=== PATIENT | male | born 1940 | race Caucasian/White ===

== ENCOUNTER → 2017-03-28 | Outpatient (CLI) | payer OTHER | END | disposition home or self-care (01) | LOC: Rad HDHVI 12:45 | PROVIDERS: ATTEND Internal Medicine Cardiovascular Disease | DX: I10 Essential (primary) hypertension (principal); R06.02 Shortness of breath | CPT/HCPCS: 93306 ==

== ENCOUNTER → 2017-04-10 | Outpatient (CLI) | payer MEDICARE, OTHER ==
[~2017-04-10] VITALS: Ht 185.4 cm; Wt 98.9 kg
== END | disposition home or self-care (01) ==
LOC: Rad HDHVI 07:50
PROVIDERS: ATTEND Internal Medicine Cardiovascular Disease
DX: I10 Essential (primary) hypertension (principal); I49.9 Cardiac arrhythmia, unspecified; E78.00 Pure hypercholesterolemia, unspecified; R06.02 Shortness of breath; R53.83 Other fatigue
CPT/HCPCS: 78452; 93017; 96374; A9500

== ENCOUNTER → 2018-08-26 | Outpatient (CLI) | payer MEDICARE, OTHER ==
[~2018-08-26] MED LIST: IOHEXOL 350 MG/ML 100ML IJ ONE
[2018-08-26 09:00] VITALS: BP 143/62
[2018-08-26 09:30] VITALS: BP 143/62
[2018-08-26 12:14] LABS: Urine Blood Negative /uL (Negative); Urine Specific Gravity 1.016 (1.001-1.035)
[2018-08-26 12:25] LABS: Basophils # (auto) 0 uL; Basophils % (auto) 0.7 % (0.0-2.0); Eosinophils # (auto) 0.1 uL; Eosinophils % (auto) 3.4 % (0.0-7.0); Hematocrit 42.5 % (41.0-53.0); Hemoglobin 14.4 g/dL (13.5-17.5); Lymphocytes # (auto) 1.2 uL; Mean Corpuscular Hemoglobin 32.2 pg (28.0-32.0); Mean Corpuscular Hgb Conc. 33.9 g/dL (32.0-36.0); Mean Corpuscular Volume 95.1 fL (80.0-100.0); Monocytes # (auto) 0.4 uL; Neutrophils # (auto) 2.2 uL; Neutrophils % (auto) 55.9 % (37.0-80.0); Nucleated Red Blood Cells % 0.4 %; Platelet Count (auto) 179 10^3/uL (140-450); Red Blood Cells 4.47 10^6/uL (4.5-5.90); Red Cell Distribution Width 13.1 % (11.8-14.3)
[2018-08-26 12:41] LABS: Potassium 3.9 mmol/L (3.5-5.1)
[2018-08-26 12:43] LABS: Free T4 (Free Thyroxine) 1.18 ng/dL (0.89-1.76); Prostate Specific Antigen 3.23 ng/mL (0.0-4.0)
[2018-08-26 13:01] LABS: Albumin 3.9 g/dL (3.4-5.0); BUN/Creatinine Ratio 18.8; Bilirubin, Total 0.9 mg/dL (0.2-1.0); Calcium 9.6 mg/dL (8.5-10.1); Total Protein 7.9 g/dL (6.4-8.2)
== END | disposition home or self-care (01) ==
LOC: Rad HDHVI 08:49
PROVIDERS: ATTEND Internal Medicine Cardiovascular Disease
DX: K57.90 Diverticulosis of intestine, part unspecified, without perforation or abscess without bleeding (principal); N28.1 Cyst of kidney, acquired; E78.5 Hyperlipidemia, unspecified; D64.9 Anemia, unspecified; E03.9 Hypothyroidism, unspecified; E11.9 Type 2 diabetes mellitus without complications; E55.9 Vitamin D deficiency, unspecified; D51.9 Vitamin B12 deficiency anemia, unspecified; K74.1 Hepatic sclerosis; N39.0 Urinary tract infection, site not specified; C61 Malignant neoplasm of prostate; Z79.899 Other long term (current) drug therapy
CPT/HCPCS: 36415; 71260; 80053; 80061; 81003; 82306; 82565; 82607; 83036; 84153; 84403; 84439; 84443; 85025; G0463; Q9967

== ENCOUNTER → 2019-04-08 | Outpatient (CLI) | payer MEDICARE, BC | END | disposition home or self-care (01) | LOC: Rad HDHVI 08:44 | PROVIDERS: ATTEND Internal Medicine Cardiovascular Disease | DX: I34.0 Nonrheumatic mitral (valve) insufficiency (principal); G45.9 Transient cerebral ischemic attack, unspecified; I47.1 Supraventricular tachycardia; R00.2 Palpitations; I10 Essential (primary) hypertension | CPT/HCPCS: 93306; 93880 ==

== ENCOUNTER → 2019-04-14 | Outpatient (CLI) | payer MEDICARE, BC ==
[~2019-04-14] VITALS: Ht 185.4 cm; Wt 102.1 kg
[~2019-04-14] MED LIST changes: +ADENOSINE 86 MG in GIVE UN-DILUTED 0 ML IV ONE; +ADENOSINE 90 MG/30 ML INJ IV ONE; -IOHEXOL 350 MG/ML 100ML IJ ONE
== END | disposition home or self-care (01) ==
LOC: Rad HDHVI 08:05
PROVIDERS: ATTEND Internal Medicine Cardiovascular Disease
DX: I47.1 Supraventricular tachycardia (principal); I10 Essential (primary) hypertension; R06.02 Shortness of breath; R00.2 Palpitations
CPT/HCPCS: 78452; 93005; 96374; 96375; A9500; J0153

== ENCOUNTER → 2019-06-17 | Outpatient (CLI) | payer MEDICARE, BC | END | disposition home or self-care (01) | LOC: Rad HDHVI 10:49 | PROVIDERS: ATTEND Internal Medicine | DX: J98.11 Atelectasis (principal) | CPT/HCPCS: 71046 ==

== ENCOUNTER → 2019-06-23 | Outpatient (CLI) | payer MEDICARE, BC ==
[2019-06-23 12:30] LABS: Urine Blood Negative /uL (Negative); Urine Specific Gravity 1.014 (1.001-1.035)
== END | disposition home or self-care (01) ==
LOC: LAB 09:09
PROVIDERS: ATTEND Internal Medicine
DX: N39.0 Urinary tract infection, site not specified (principal)
CPT/HCPCS: 81003

== ENCOUNTER → 2020-11-03 | Outpatient (CLI) | payer MEDICARE, BC | END | disposition home or self-care (01) | LOC: Rad HDHVI 09:05 | PROVIDERS: ATTEND Internal Medicine Cardiovascular Disease | DX: I47.1 Supraventricular tachycardia (principal); I25.2 Old myocardial infarction | CPT/HCPCS: 93306 ==

== ENCOUNTER → 2020-11-05 | Outpatient (CLI) | payer MEDICARE, BC | END | disposition home or self-care (01) | LOC: Rad HDHVI 08:58 | PROVIDERS: ATTEND Internal Medicine Cardiovascular Disease | DX: I10 Essential (primary) hypertension (principal); E78.5 Hyperlipidemia, unspecified | CPT/HCPCS: 93880 ==

== ENCOUNTER → 2020-11-17 | Outpatient (CLI) | payer MEDICARE, BC ==
[~2020-11-17] VITALS: Ht 180.3 cm; Wt 93.0 kg
[~2020-11-17] MED LIST changes: +ADENOSINE 78 MG in GIVE UN-DILUTED 0 ML IV ONE; -ADENOSINE 86 MG in GIVE UN-DILUTED 0 ML IV ONE
== END | disposition home or self-care (01) ==
LOC: Rad HDHVI 09:16
PROVIDERS: ATTEND Internal Medicine Cardiovascular Disease
DX: R00.2 Palpitations (principal); I10 Essential (primary) hypertension; R78.5 Finding of other psychotropic drug in blood; J44.9 Chronic obstructive pulmonary disease, unspecified; R06.02 Shortness of breath
CPT/HCPCS: 78452; 93005; 96374; 96375; A9500; J0153

== ENCOUNTER → 2020-11-19 | Outpatient (CLI) | payer MEDICARE, BC ==
[2020-11-19 11:42] LABS: Basophils # (auto) 0 10 ^3/uL (0-0.2); Basophils % (auto) 0.9 % (0.0-2.0); Eosinophils # (auto) 0.2 10 ^3/uL (0-0.8); Eosinophils % (auto) 4.4 % (0.0-7.0); Hematocrit 35.3 % (41.0-53.0); Lymphocytes # (auto) 1.3 10 ^3/uL (0.4-5.4); Lymphocytes % (auto) 33.7 % (10.0-50.0); Mean Corpuscular Hemoglobin 31.2 pg (28.0-32.0); Mean Corpuscular Hgb Conc. 33.9 g/dL (32.0-36.0); Mean Corpuscular Volume 91.9 fL (80.0-100.0); Monocytes # (auto) 0.4 10 ^3/uL (0-1.3); Monocytes % (auto) 10.2 % (0.0-12.0); Neutrophils % (auto) 50.8 % (37.0-80.0); Platelet Count (auto) 165 10^3/uL (140-450); Red Blood Cells 3.84 10^6/uL (4.5-5.90); Red Cell Distribution Width 13.7 % (11.8-14.3); White Blood Cell 3.9 10^3/uL (4.4-10.8)
[2020-11-19 11:52] LABS: Albumin 3.7 g/dL (3.4-5.0); Potassium 4.1 mmol/L (3.5-5.1)
[2020-11-19 11:57] LABS: Urine Blood Negative /uL (Negative); Urine Specific Gravity 1.018 (1.001-1.035)
[2020-11-19 12:00] LABS: BUN/Creatinine Ratio 30.1; Bilirubin, Total 0.8 mg/dL (0.2-1.0); Calcium 9.8 mg/dL (8.5-10.1); Total Protein 7.8 g/dL (6.4-8.2)
[2020-11-19 12:10] LABS: Prostate Specific Antigen 4.88 ng/mL (0.0-4.0)
[2020-11-19 12:14] LABS: Free T4 (Free Thyroxine) 1.1 ng/dL (0.89-1.76)
== END | disposition home or self-care (01) ==
LOC: LAB 08:24
PROVIDERS: ATTEND Internal Medicine Cardiovascular Disease
DX: C61 Malignant neoplasm of prostate (principal); I10 Essential (primary) hypertension; D51.3 Other dietary vitamin B12 deficiency anemia; E11.9 Type 2 diabetes mellitus without complications; E55.9 Vitamin D deficiency, unspecified; D64.9 Anemia, unspecified; R00.2 Palpitations; R53.1 Weakness; R30.0 Dysuria
CPT/HCPCS: 36415; 80053; 80061; 81003; 82306; 82607; 83036; 84153; 84154; 84403; 84439; 84443; 85025

== ENCOUNTER → 2021-01-28 | Outpatient (CLI) | payer MEDICARE, BC ==
[2021-01-28 10:41] LABS: Urine Bacteria NONE SEEN /hpf (None Seen); Urine Blood 3+ /uL (Negative); Urine Mucus FEW (None Seen); Urine Specific Gravity 1.017 (1.001-1.035); Urine WBC 35 /hpf (0 - 3)
== END | disposition home or self-care (01) ==
LOC: LAB 10:26
PROVIDERS: ATTEND Nurse Practitioner Family
DX: N39.0 Urinary tract infection, site not specified (principal)
CPT/HCPCS: 81001; 87086

== ENCOUNTER → 2021-12-05 | Outpatient (CLI) | payer MEDICARE, BC ==
[~2021-12-05] VITALS: Ht 180.3 cm; Wt 99.8 kg
[~2021-12-05] MED LIST changes: -ADENOSINE 78 MG in GIVE UN-DILUTED 0 ML IV ONE; +ADENOSINE 84 MG in GIVE UN-DILUTED 0 ML IV ONE
== END | disposition home or self-care (01) ==
LOC: Rad HDHVI 08:06
PROVIDERS: ATTEND Internal Medicine Cardiovascular Disease
DX: I10 Essential (primary) hypertension (principal); E78.5 Hyperlipidemia, unspecified; Z82.49 Family history of ischemic heart disease and other diseases of the circulatory system
CPT/HCPCS: 78452; 93005; 96374; 96375; A9500; J0153

== ENCOUNTER → 2022-07-10 | Outpatient (CLI) | payer MEDICARE, BC ==
[~2022-07-10] MED LIST changes: -ADENOSINE 84 MG in GIVE UN-DILUTED 0 ML IV ONE; -ADENOSINE 90 MG/30 ML INJ IV ONE; +APIX2.5T PO; +ASCO500T11 PO; +ATOR20TA50 PO; +AZIL40TA2 PO; +CHOL100079 PO; +COEN300C PO; +CRAN1CAP10 PO; +FINA5TAB4 PO; +MISC-1089 PO; +MULTTAB75 PO; +NIAC-10 PO; +OMEG100078 PO; +OMEP-434 PO; +PROBCAP38 PO; +SOTA80TA PO; +TURM500C3 PO
[2022-07-10 10:14] VITALS: BP 120/72
[2022-07-10 10:32] VITALS: BP 109/68
[2022-07-10 11:36] LABS: BUN/Creatinine Ratio 16.7; Calcium 9.6 mg/dL (8.5-10.1)
[2022-07-10 12:04] LABS: Basophils # (auto) 0 10 ^3/uL (0-0.2); Basophils % (auto) 0.6 % (0.0-2.0); Eosinophils # (auto) 0.1 10 ^3/uL (0-0.8); Eosinophils % (auto) 3.4 % (0.0-7.0); Hematocrit 38.2 % (41.0-53.0); Hemoglobin 12.3 g/dL (13.5-17.5); Lymphocytes % (auto) 23.5 % (10.0-50.0); Mean Corpuscular Hemoglobin 28.3 pg (28.0-32.0); Mean Corpuscular Hgb Conc. 32.2 g/dL (32.0-36.0); Mean Corpuscular Volume 87.7 fL (80.0-100.0); Monocytes # (auto) 0.5 10 ^3/uL (0-1.3); Monocytes % (auto) 10.6 % (0.0-12.0); Neutrophils # (auto) 2.6 10 ^3/uL (1.6-8.6); Neutrophils % (auto) 61.9 % (37.0-80.0); Nucleated Red Blood Cells % 0.1 %; Red Blood Cells 4.35 10^6/uL (4.5-5.90); White Blood Cell 4.3 10^3/uL (4.4-10.8)
[2022-07-10 12:34] LABS: Partial Thromboplastin Time 27.3 sec (24.6-33.4)
== END | disposition home or self-care (01) ==
LOC: Rad HDHVI 10:02
PROVIDERS: ATTEND Internal Medicine Cardiovascular Disease
DX: Z01.818 Encounter for other preprocedural examination (principal); R94.31 Abnormal electrocardiogram [ECG] [EKG]; I48.20 Chronic atrial fibrillation, unspecified; I95.9 Hypotension, unspecified; I70.0 Atherosclerosis of aorta; R79.1 Abnormal coagulation profile
CPT/HCPCS: 36415; 71046; 80048; 85025; 85610; 85730; 93005; G0463

== ENCOUNTER 2022-07-13 07:00 | Day surgery (SDC) | payer MEDICARE, BC ==
[~2022-07-13] VITALS: Ht 180.3 cm; Wt 97.5 kg
[2022-07-13] MEDS ORDERED: VANCOMYCIN 1GM/250ML 250 ML IV ONE ×2 (10:00→11:32)
[2022-07-13] MEDS ORDERED: VANCOMYCIN HCL 1000 MG VL ONE (11:31)
[2022-07-13] MEDS ORDERED: fentaNYL CITRATE 100 MCG/2 ML VL ONE (11:31)
[2022-07-13] MEDS ORDERED: MIDAZOLAM HCL 2MG/2ML 2ml VIAL (1mg/ml) ONE (11:32)
[2022-07-13] MEDS ORDERED: LIDOCAINE 2%HCL (LOCAL ANESTH.) INJ 20ML MDV ONE (11:32)
[2022-07-13] MEDS ORDERED: IODIXANOL 320MG/ML 100ML BTL IV ONE (12:04)
== END 2022-07-13 14:37 | disposition home or self-care (01) ==
LOC: CATH 07:00
PROVIDERS: ATTEND Internal Medicine Cardiovascular Disease
DX: I49.5 Sick sinus syndrome (principal); I48.20 Chronic atrial fibrillation, unspecified; E78.5 Hyperlipidemia, unspecified; I11.9 Hypertensive heart disease without heart failure; Z20.822 Contact with and (suspected) exposure to COVID-19; Z79.899 Other long term (current) drug therapy
CPT/HCPCS: 33208; 71045; 93005; C1785; C1892; C1898; J2250; J3010; J3370; U0003; 99152; 99153; Q9967

== ENCOUNTER → 2022-10-11 | Outpatient (CLI) | payer MEDICARE, BC | END | disposition home or self-care (01) | LOC: Rad HDHVI 09:04 | PROVIDERS: ATTEND Internal Medicine Cardiovascular Disease | DX: I08.3 Combined rheumatic disorders of mitral, aortic and tricuspid valves (principal); R00.2 Palpitations; E78.5 Hyperlipidemia, unspecified | CPT/HCPCS: 93306 ==

== ENCOUNTER → 2022-11-13 | Outpatient (CLI) | payer MEDICARE, BC ==
[~2022-11-13] MED LIST changes: +MAGN250T8 PO; +OMEG1CAP31 PO
[2022-11-13 12:48] VITALS: BP 130/90
[2022-11-13 16:49] LABS: BUN/Creatinine Ratio 21.8; Calcium 9.4 mg/dL (8.5-10.1)
[2022-11-13 16:51] LABS: Basophils # (auto) 0 10 ^3/uL (0-0.2); Basophils % (auto) 0.6 % (0.0-2.0); Eosinophils # (auto) 0.1 10 ^3/uL (0-0.8); Eosinophils % (auto) 2.6 % (0.0-7.0); Hemoglobin 13.5 g/dL (13.5-17.5); Lymphocytes # (auto) 1.1 10 ^3/uL (0.4-5.4); Lymphocytes % (auto) 18.6 % (10.0-50.0); Mean Corpuscular Hemoglobin 29.5 pg (28.0-32.0); Mean Corpuscular Volume 89.4 fL (80.0-100.0); Monocytes # (auto) 0.6 10 ^3/uL (0-1.3); Neutrophils # (auto) 3.8 10 ^3/uL (1.6-8.6); Neutrophils % (auto) 67.2 % (37.0-80.0); Red Blood Cells 4.58 10^6/uL (4.5-5.90); Red Cell Distribution Width 16.4 % (11.8-14.3); White Blood Cell 5.7 10^3/uL (4.4-10.8)
[2022-11-13 17:12] LABS: INR 1.03 (0.9-1.15); Partial Thromboplastin Time 28.1 sec (24.6-33.4)
== END | disposition home or self-care (01) ==
LOC: Rad HDHVI 12:37
PROVIDERS: ATTEND Internal Medicine Cardiovascular Disease
DX: R79.1 Abnormal coagulation profile (principal)
CPT/HCPCS: 36415; 71046; 80048; 85025; 85610; 85730; G0463

== ENCOUNTER 2022-11-16 09:10 | Day surgery (SDC) | payer MEDICARE, BC ==
[~2022-11-16] VITALS: Ht 180.3 cm; Wt 98.4 kg
[~2022-11-16 09:10] MED LIST changes: -OMEG100078 PO
[2022-11-16] MEDS ORDERED: MIDAZOLAM HCL 2MG/2ML 2ml VIAL (1mg/ml) IV ONE ×2 (09:45→11:00)
[2022-11-16] MEDS ORDERED: MIDAZOLAM HCL 2MG/2ML 2ml VIAL (1mg/ml) ONE (10:46)
[2022-11-16 10:55] VITALS: BP 142/89
[2022-11-16 10:58] VITALS: BP 134/87
[2022-11-16 11:13] VITALS: BP 127/82
[2022-11-16 11:28] VITALS: BP 126/80
[2022-11-16 11:58] VITALS: BP 135/95
[2022-11-16] MEDS ORDERED: levoFLOXacin 500MG 100 ML IV ONE (12:00)
[2022-11-16 13:28] VITALS: BP 128/75
[2022-11-16 15:28] LABS: Urine Bacteria NONE SEEN /hpf (None Seen); Urine Blood 3+ /uL (Negative); Urine Budding Yeast FEW /hpf (None Seen); Urine Mucus FEW (None Seen); Urine WBC 17 /hpf (0 - 3)
== END 2022-11-16 13:47 | disposition home or self-care (01) ==
LOC: CATH 09:10
PROVIDERS: ATTEND Internal Medicine Cardiovascular Disease
DX: I48.20 Chronic atrial fibrillation, unspecified (principal); E78.5 Hyperlipidemia, unspecified; I10 Essential (primary) hypertension; I49.5 Sick sinus syndrome; Z79.899 Other long term (current) drug therapy; Z79.01 Long term (current) use of anticoagulants; R31.0 Gross hematuria
CPT/HCPCS: 81001; 92960; 93005; J1956; J2250; J7040; 99152

== ENCOUNTER → 2023-01-29 | Outpatient (CLI) | payer MEDICARE, BC ==
[~2023-01-29] MED LIST changes: +AMIO200T33 PO
[2023-01-29 08:55] VITALS: BP 115/78
[2023-01-29 09:13] VITALS: BP 121/73
== END | disposition home or self-care (01) ==
LOC: Rad HDHVI 08:43
PROVIDERS: ATTEND Internal Medicine Cardiovascular Disease
DX: Z01.810 Encounter for preprocedural cardiovascular examination (principal); R94.31 Abnormal electrocardiogram [ECG] [EKG]; I48.0 Paroxysmal atrial fibrillation
CPT/HCPCS: 36415; 71046; 80048; 85025; 85610; 85730; 93005; G0463

== ENCOUNTER 2023-02-01 06:50 | Day surgery (SDC) | payer MEDICARE, BC ==
[2023-01-29 10:30] LABS: Basophils # (auto) 0 10 ^3/uL (0-0.2); Basophils % (auto) 0.7 % (0.0-2.0); Eosinophils # (auto) 0.3 10 ^3/uL (0-0.8); Eosinophils % (auto) 4.4 % (0.0-7.0); Hematocrit 36.6 % (41.0-53.0); Hemoglobin 12.1 g/dL (13.5-17.5); Lymphocytes # (auto) 0.7 10 ^3/uL (0.4-5.4); Lymphocytes % (auto) 12.9 % (10.0-50.0); Mean Corpuscular Hemoglobin 29.3 pg (28.0-32.0); Mean Corpuscular Volume 88.7 fL (80.0-100.0); Monocytes # (auto) 0.7 10 ^3/uL (0-1.3); Monocytes % (auto) 11.5 % (0.0-12.0); Neutrophils % (auto) 70.5 % (37.0-80.0); Nucleated Red Blood Cells % 0.1 %; Red Blood Cells 4.12 10^6/uL (4.5-5.90); Red Cell Distribution Width 17.4 % (11.8-14.3); White Blood Cell 5.7 10^3/uL (4.4-10.8)
[2023-01-29 10:43] LABS: INR 1.07 (0.9-1.15); Partial Thromboplastin Time 28.6 sec (24.6-33.4)
[2023-01-29 10:46] LABS: BUN/Creatinine Ratio 24.6 (10.0-20.0); Calcium 9.3 mg/dL (8.5-10.1); Potassium 3.9 mmol/L (3.5-5.1)
[~2023-02-01] VITALS: Ht 180.3 cm; Wt 93.9 kg
[~2023-02-01 06:50] MED LIST changes: -SOTA80TA PO
[2023-02-01] MEDS ORDERED: fentaNYL CITRATE 100 MCG/2 ML VL IV ONE (09:00)
[2023-02-01] MEDS ORDERED: MIDAZOLAM HCL 2MG/2ML 2ml VIAL (1mg/ml) IV ONE (09:00)
[2023-02-01] MEDS ORDERED: diphenhdrAMINE HCL 50 MG/1 ML VL ONE (09:39)
[2023-02-01] MEDS ORDERED: diphenhdrAMINE HCL 50 MG/1 ML VL IV ONE (10:15)
== END 2023-02-01 11:38 | disposition home or self-care (01) ==
LOC: CATH 06:50
PROVIDERS: ATTEND Internal Medicine Cardiovascular Disease
DX: I48.91 Unspecified atrial fibrillation (principal); I10 Essential (primary) hypertension; I49.5 Sick sinus syndrome; Z79.01 Long term (current) use of anticoagulants; E66.9 Obesity, unspecified
CPT/HCPCS: 36415; 80048; 85025; 85610; 85730; 92960; J1200; J2250; J7040; 99152

== ENCOUNTER → 2023-02-21 | Outpatient (CLI) | payer MEDICARE, BC ==
[~2023-02-21] MED LIST changes: -COEN300C PO; +COEN300C2 PO; +MAGNESIUM SULFATE 1GM/100ML 200 ML IV ONE; +OMEG-28 PO; -OMEG1CAP31 PO
[2023-02-21 09:40] VITALS: BP 148/84
[2023-02-21] MEDS: MAGNESIUM SULFATE 1GM/100ML 100 ML IV SCH ×5 (10:30→14:21)
[2023-02-21 14:19] VITALS: BP 133/83
== END | disposition home or self-care (01) ==
LOC: CHF HDHVI 09:32
PROVIDERS: ATTEND Internal Medicine Cardiovascular Disease
DX: E83.42 Hypomagnesemia (principal); I48.0 Paroxysmal atrial fibrillation; R06.02 Shortness of breath; R07.89 Other chest pain; R53.83 Other fatigue; I10 Essential (primary) hypertension; E66.9 Obesity, unspecified; Z79.01 Long term (current) use of anticoagulants
CPT/HCPCS: 93005; 96365; 96366; G0463; J3475

== ENCOUNTER → 2023-03-14 | Outpatient (CLI) | payer MEDICARE, BC ==
[~2023-03-14] MED LIST changes: +DOCU-80 PO; +LINA145C PO; +MAGN400T40 PO; -MAGNESIUM SULFATE 1GM/100ML 200 ML IV ONE; +METO-6 PO; +POM; +SODIUM FERRIC GLUC CPLEX 62.5MG/5ML VIAL IV ONE; +TEMA30CA PO
[2023-03-14 09:56] VITALS: BP 116/82
[2023-03-14 10:05] VITALS: BP 112/72
== END | disposition home or self-care (01) ==
LOC: Rad HDHVI 09:47
PROVIDERS: ATTEND Internal Medicine Cardiovascular Disease
DX: Z01.818 Encounter for other preprocedural examination (principal); I48.0 Paroxysmal atrial fibrillation; R00.2 Palpitations; R06.02 Shortness of breath; R07.9 Chest pain, unspecified; R94.31 Abnormal electrocardiogram [ECG] [EKG]
CPT/HCPCS: 71046; 80048; 85025; 85610; 85730; 93005; G0463

== ENCOUNTER 2023-03-15 06:52 | Day surgery (SDC) | payer MEDICARE, BC ==
[2023-03-14 12:00] LABS: Basophils # (auto) 0 10 ^3/uL (0-0.2); Basophils % (auto) 0.5 % (0.0-2.0); Eosinophils # (auto) 0 10 ^3/uL (0-0.8); Eosinophils % (auto) 0.7 % (0.0-7.0); Hematocrit 30.9 % (41.0-53.0); Hemoglobin 10.1 g/dL (13.5-17.5); Lymphocytes # (auto) 0.6 10 ^3/uL (0.4-5.4); Lymphocytes % (auto) 10.7 % (10.0-50.0); Mean Corpuscular Hemoglobin 27.7 pg (28.0-32.0); Mean Corpuscular Hgb Conc. 32.6 g/dL (32.0-36.0); Mean Corpuscular Volume 85.1 fL (80.0-100.0); Monocytes # (auto) 0.6 10 ^3/uL (0-1.3); Monocytes % (auto) 10.9 % (0.0-12.0); Neutrophils # (auto) 4.2 10 ^3/uL (1.6-8.6); Neutrophils % (auto) 77.2 % (37.0-80.0); Red Blood Cells 3.63 10^6/uL (4.5-5.90); Red Cell Distribution Width 15.8 % (11.8-14.3); White Blood Cell 5.5 10^3/uL (4.4-10.8)
[2023-03-14 12:12] LABS: BUN/Creatinine Ratio 14.4 (10.0-20.0); Calcium 8.9 mg/dL (8.5-10.1); Potassium 3.2 mmol/L (3.5-5.1)
[2023-03-14 12:16] LABS: INR 1.12 (0.9-1.15)
[~2023-03-15] VITALS: Ht 185.4 cm; Wt 94.8 kg
[2023-03-15] VITALS (9 sets, daily range): BP systolic 124–140; BP diastolic 82–92
[~2023-03-15 06:52] MED LIST changes: -CRAN1CAP10 PO; -DOCU-80 PO; -MAGN400T40 PO; -SODIUM FERRIC GLUC CPLEX 62.5MG/5ML VIAL IV ONE
[2023-03-15] MEDS ORDERED: IOHEXOL 350 MG/ML 500ML BOTTLE IJ ONE (10:18)
[2023-03-15] MEDS ORDERED: LIDOCAINE 2%HCL (LOCAL ANESTH.) INJ 20ML MDV ONE (10:18)
[2023-03-15] MEDS ORDERED: fentaNYL CITRATE 100 MCG/2 ML VL ONE (10:47)
[2023-03-15] MEDS ORDERED: MIDAZOLAM HCL 2MG/2ML 2ml VIAL (1mg/ml) ONE (10:48)
== END 2023-03-15 13:10 | disposition home or self-care (01) ==
LOC: CATH 06:52
PROVIDERS: ATTEND Internal Medicine Cardiovascular Disease
DX: I48.19 Other persistent atrial fibrillation (principal); D64.9 Anemia, unspecified; I10 Essential (primary) hypertension; E78.5 Hyperlipidemia, unspecified; I49.5 Sick sinus syndrome; Z95.0 Presence of cardiac pacemaker; Z79.899 Other long term (current) drug therapy
CPT/HCPCS: 36415; 80048; 85025; 85610; 85730; 93458; C1894; J1644; J2250; J3010; Q9967; 99152

== ENCOUNTER 2023-03-30 08:14 | Inpatient (IN) | payer MEDICARE, BC ==
[~2023-03-30] VITALS: Ht 180.3 cm; Wt 92.9 kg
[2023-03-30] MEDS ORDERED: FUROSEMIDE 40 MG/4 ML VIAL IV ONE (08:45)
[2023-03-30 09:04] LABS: Eosinophils # (auto) 0 10 ^3/uL (0-0.8); Hematocrit 25.8 % (41.0-53.0); Hemoglobin 8.3 g/dL (13.5-17.5); Lymphocytes # (auto) 0.5 10 ^3/uL (0.4-5.4); Neutrophils # (auto) 5.4 10 ^3/uL (1.6-8.6); Red Cell Distribution Width 16.7 % (11.8-14.3); White Blood Cell 6.7 10^3/uL (4.4-10.8)
[2023-03-30 09:05] LABS: Basophils # (auto) 0.1 10 ^3/uL (0-0.2); Basophils % (auto) 0.8 % (0.0-2.0); Eosinophils % (auto) 0.6 % (0.0-7.0); Lymphocytes % (auto) 7.8 % (10.0-50.0); Mean Corpuscular Hemoglobin 26.1 pg (28.0-32.0); Mean Corpuscular Hgb Conc. 32.2 g/dL (32.0-36.0); Mean Corpuscular Volume 81.2 fL (80.0-100.0); Monocytes # (auto) 0.6 10 ^3/uL (0-1.3); Monocytes % (auto) 9.6 % (0.0-12.0); Neutrophils % (auto) 81.2 % (37.0-80.0); Nucleated Red Blood Cells % 0.2 %; Red Blood Cells 3.18 10^6/uL (4.5-5.90)
[2023-03-30 09:35] LABS: Albumin 3.3 g/dL (3.4-5.0); Calcium 8.6 mg/dL (8.5-10.1); Magnesium 2.3 mg/dL (1.6-2.6); Potassium 3.6 mmol/L (3.5-5.1)
[2023-03-30 09:38] LABS: BUN/Creatinine Ratio 17.1 (10.0-20.0); Bilirubin, Total 0.8 mg/dL (0.2-1.0); Total Protein 6.6 g/dL (6.4-8.2)
[2023-03-30 10:55] LABS: Urine Bacteria FEW /hpf (None Seen); Urine Blood Negative /uL (Negative); Urine WBC 1 /hpf (0 - 3)
[2023-03-30] MEDS ORDERED: NITROGLYCERIN 0.4 MG SL TAB SL PRN (14:30)
[2023-03-30] MEDS ORDERED: MORPHINE SULFATE INJ 2 MG/ml SYRG IV PRN (14:30)
[2023-03-30] MEDS ORDERED: FUROSEMIDE INJECTION 100 MG in SODIUM CHL 0.9% 100 ML IV ONE (14:30)
[2023-03-30] MEDS ORDERED: DOBUTamine 1000MCG/ML 250 ML IV ONE (14:30)
[2023-03-30] MEDS ORDERED: TEMAZEPAM 15 MG CAP PO PRN (14:45)
[2023-03-30] MEDS: AMIODARONE HCL 200 MG TAB PO SCH (22:25)
[2023-03-30] MEDS: APIXABAN 2.5 MG TAB PO SCH (22:26)
[2023-03-31] MEDS ORDERED: DOBUTamine 1000MCG/ML 250 ML IV ONE (01:21)
[2023-03-31] MEDS ORDERED: FUROSEMIDE INJECTION 100 MG in SODIUM CHL 0.9% 100 ML IV SCH (01:30)
[2023-03-31] MEDS ORDERED: DOBUTamine 1000MCG/ML 250 ML IV SCH (01:30)
[2023-03-31 05:26] LABS: Basophils # (auto) 0 10 ^3/uL (0-0.2); Eosinophils # (auto) 0 10 ^3/uL (0-0.8); Hemoglobin 8.4 g/dL (13.5-17.5); Monocytes # (auto) 0.8 10 ^3/uL (0-1.3)
[2023-03-31 05:28] LABS: Basophils % (auto) 0.4 % (0.0-2.0); Eosinophils % (auto) 0.1 % (0.0-7.0); Hematocrit 26.1 % (41.0-53.0); Lymphocytes # (auto) 0.7 10 ^3/uL (0.4-5.4); Lymphocytes % (auto) 10.5 % (10.0-50.0); Mean Corpuscular Hemoglobin 25.8 pg (28.0-32.0); Mean Corpuscular Hgb Conc. 32.2 g/dL (32.0-36.0); Mean Corpuscular Volume 80.1 fL (80.0-100.0); Monocytes % (auto) 11.4 % (0.0-12.0); Neutrophils # (auto) 5.3 10 ^3/uL (1.6-8.6); Neutrophils % (auto) 77.6 % (37.0-80.0); Nucleated Red Blood Cells % 0.1 %; Red Blood Cells 3.26 10^6/uL (4.5-5.90); Red Cell Distribution Width 16.8 % (11.8-14.3); White Blood Cell 6.8 10^3/uL (4.4-10.8)
[2023-03-31 05:31] LABS: BUN/Creatinine Ratio 12.5 (10.0-20.0); Calcium 8.9 mg/dL (8.5-10.1)
[2023-03-31 05:46] LABS: Potassium 2.7 mmol/L (3.5-5.1)
[2023-03-31] MEDS ORDERED: POTASSIUM EFFERVESENT TAB 25 MEQ GT ONE (06:15)
[2023-03-31] MEDS ORDERED: POTASSIUM EFFERVESENT TAB 25 MEQ PO ONE ×2 (08:45→12:00)
[2023-03-31] MEDS ORDERED: METOCLOPRAMIDE HCL 5MG/ml INJ 2ml VIAL IV PRN (09:00)
[2023-03-31] MEDS: MAGNESIUM OXIDE 500 MG PO SCH (10:54)
[2023-03-31] MEDS: APIXABAN 2.5 MG TAB PO SCH ×2 (11:17→21:14)
[2023-03-31] MEDS: AMIODARONE HCL 200 MG TAB PO SCH ×2 (11:17→21:14)
[2023-03-31] MEDS: POTASSIUM EFFERVESENT TAB 25 MEQ PO SCH (11:18)
[2023-03-31] MEDS: FINASTERIDE 5 MG TAB PO SCH (11:19)
[2023-03-31] MEDS: METOPROLOL SUCCINATE XL 50 MG TAB PO SCH (11:19)
[2023-03-31] MEDS: PANTOPRAZOLE 40 MG TAB PO SCH (11:19)
[2023-03-31 12:39] VITALS: BP 115/71
[2023-03-31 16:01] LABS: Basophils # (auto) 0.1 10 ^3/uL (0-0.2); Eosinophils # (auto) 0 10 ^3/uL (0-0.8); Mean Corpuscular Hemoglobin 25.4 pg (28.0-32.0); Nucleated Red Blood Cells % 0.1 %; White Blood Cell 8.8 10^3/uL (4.4-10.8)
[2023-03-31 16:02] LABS: Basophils % (auto) 0.7 % (0.0-2.0); Eosinophils % (auto) 0.2 % (0.0-7.0); Hematocrit 27.6 % (41.0-53.0); Hemoglobin 8.7 g/dL (13.5-17.5); Lymphocytes # (auto) 0.7 10 ^3/uL (0.4-5.4); Lymphocytes % (auto) 7.4 % (10.0-50.0); Mean Corpuscular Hgb Conc. 31.7 g/dL (32.0-36.0); Mean Corpuscular Volume 80.3 fL (80.0-100.0); Monocytes # (auto) 1.2 10 ^3/uL (0-1.3); Monocytes % (auto) 13.1 % (0.0-12.0); Neutrophils # (auto) 6.9 10 ^3/uL (1.6-8.6); Neutrophils % (auto) 78.6 % (37.0-80.0); Red Blood Cells 3.44 10^6/uL (4.5-5.90); Red Cell Distribution Width 17.3 % (11.8-14.3)
[2023-03-31 16:20] LABS: Albumin 3.3 g/dL (3.4-5.0); Calcium 9.3 mg/dL (8.5-10.1); Potassium 4.1 mmol/L (3.5-5.1)
[2023-03-31 16:23] LABS: BUN/Creatinine Ratio 12.2 (10.0-20.0); Total Protein 7.2 g/dL (6.4-8.2)
[2023-03-31 17:02] VITALS: BP 115/70
[2023-03-31 22:00] VITALS: BP 97/63
[2023-04-01 04:58] VITALS: BP 123/82
[2023-04-01 07:30] VITALS: BP 137/74
[2023-04-01 08:37] VITALS: BP 137/74
[2023-04-01] MEDS: PANTOPRAZOLE 40 MG TAB PO SCH (10:33)
[2023-04-01] MEDS: FINASTERIDE 5 MG TAB PO SCH (10:33)
[2023-04-01] MEDS: APIXABAN 2.5 MG TAB PO SCH ×2 (10:33→21:09)
[2023-04-01] MEDS: AMIODARONE HCL 200 MG TAB PO SCH ×2 (10:33→21:08)
[2023-04-01] MEDS: METOPROLOL SUCCINATE XL 50 MG TAB PO SCH (10:34)
[2023-04-01] MEDS: POTASSIUM EFFERVESENT TAB 25 MEQ PO SCH (10:34)
[2023-04-01] MEDS: MAGNESIUM OXIDE 500 MG PO SCH (10:35)
[2023-04-01] MEDS ORDERED: FUROSEMIDE 40 MG/4 ML VIAL IV ONE (16:30)
[2023-04-01 17:00] VITALS: BP 94/60
[2023-04-01 17:22] LABS: Albumin 3.2 g/dL (3.4-5.0); Calcium 8.7 mg/dL (8.5-10.1); Potassium 4.1 mmol/L (3.5-5.1)
[2023-04-01 17:26] LABS: BUN/Creatinine Ratio 11.3 (10.0-20.0); Total Protein 6.8 g/dL (6.4-8.2)
[2023-04-01] MEDS ORDERED: POTASSIUM EFFERVESENT TAB 25 MEQ PO ONE (17:45)
[2023-04-01 17:54] LABS: Basophils # (auto) 0 10 ^3/uL (0-0.2); Basophils % (auto) 0.6 % (0.0-2.0); Eosinophils # (auto) 0 10 ^3/uL (0-0.8); Eosinophils % (auto) 0.3 % (0.0-7.0); Hematocrit 28.9 % (41.0-53.0); Lymphocytes # (auto) 0.9 10 ^3/uL (0.4-5.4); Lymphocytes % (auto) 11.5 % (10.0-50.0); Mean Corpuscular Hgb Conc. 31.3 g/dL (32.0-36.0); Mean Corpuscular Volume 79.9 fL (80.0-100.0); Monocytes # (auto) 0.9 10 ^3/uL (0-1.3); Monocytes % (auto) 11.7 % (0.0-12.0); Neutrophils # (auto) 5.8 10 ^3/uL (1.6-8.6); Neutrophils % (auto) 75.9 % (37.0-80.0); Nucleated Red Blood Cells % 0.1 %; Red Blood Cells 3.62 10^6/uL (4.5-5.90); Red Cell Distribution Width 17.4 % (11.8-14.3); White Blood Cell 7.6 10^3/uL (4.4-10.8)
[2023-04-01 22:00] VITALS: BP 97/67
[2023-04-02 05:00] VITALS: BP 109/71
[2023-04-02 09:07] VITALS: BP 110/69
[2023-04-02] MEDS: POTASSIUM EFFERVESENT TAB 25 MEQ PO SCH (11:08)
[2023-04-02] MEDS: AMIODARONE HCL 200 MG TAB PO SCH (11:09)
[2023-04-02] MEDS: FINASTERIDE 5 MG TAB PO SCH (11:09)
[2023-04-02] MEDS: PANTOPRAZOLE 40 MG TAB PO SCH (11:09)
[2023-04-02] MEDS: APIXABAN 2.5 MG TAB PO SCH (11:09)
[2023-04-02] MEDS: METOPROLOL SUCCINATE XL 50 MG TAB PO SCH (11:10)
[2023-04-02] MEDS: MAGNESIUM OXIDE 500 MG PO SCH (11:10)
[2023-04-02 13:00] VITALS: BP 113/75
[2023-04-02 16:58] VITALS: BP 102/51
[2023-04-02 17:00] VITALS: BP 102/51
== END 2023-04-02 18:00 | disposition home or self-care (01) | DRG 291 ==
LOC: ER 08:14 → TELE 14:18 → TELE-WESTW 03-31 12:34
PROVIDERS: ADMIT Internal Medicine Cardiovascular Disease; ATTEND Internal Medicine Cardiovascular Disease
PROC: 05HF33Z Insertion of Infusion Device into Left Cephalic Vein, Percutaneous Approach (ICD-10-PCS; principal; 2023-03-30)
PROC: B54NZZA Ultrasonography of Left Upper Extremity Veins, Guidance (ICD-10-PCS; 2023-03-30)
DX: I11.0 Hypertensive heart disease with heart failure (principal); I50.31 Acute diastolic (congestive) heart failure; D68.59 Other primary thrombophilia; I48.91 Unspecified atrial fibrillation; D64.9 Anemia, unspecified; E78.5 Hyperlipidemia, unspecified; Z95.0 Presence of cardiac pacemaker; E87.6 Hypokalemia; R60.1 Generalized edema
CPT/HCPCS: 36415; 71046; 80048; 80053; 81001; 83735; 83880; 84484; 85025; 93005; 96365; 96366; 96368; 96375; 99291; G0378

== ENCOUNTER → 2023-07-02 | Outpatient (CLI) | payer MEDICARE, BC ==
[~2023-07-02] MED LIST changes: +FURO40TA4 PO; +MISC-1089 OR; +ONDA-155 PO; +POM PO; +TURM500C3 OR
[2023-07-02 11:53] VITALS: BP 115/67; PULSE 75; RESP 18; O2SAT 99
[2023-07-02 12:10] VITALS: BP 99/61; PULSE 78; RESP 18; O2SAT 99
== END | disposition home or self-care (01) ==
LOC: CHF HDHVI 11:44
PROVIDERS: ATTEND Internal Medicine Cardiovascular Disease
DX: Z01.810 Encounter for preprocedural cardiovascular examination (principal); R94.31 Abnormal electrocardiogram [ECG] [EKG]; I48.0 Paroxysmal atrial fibrillation
CPT/HCPCS: 93005; G0463

== ENCOUNTER → 2023-07-19 | Outpatient (CLI) | payer MEDICARE, BC ==
[~2023-07-19] MED LIST changes: +IOHEXOL 350 MG/ML 100ML IJ ONE; -MISC-1089 OR; -TURM500C3 PO
[2023-07-19 15:07] VITALS: BP 123/75; PULSE 94; RESP 16; O2SAT 97
[2023-07-19 15:24] VITALS: BP 110/75; PULSE 91; RESP 16; O2SAT 96
== END | disposition home or self-care (01) ==
LOC: Rad HDHVI 14:12
PROVIDERS: ATTEND Internal Medicine Cardiovascular Disease
DX: N28.1 Cyst of kidney, acquired (principal); J90 Pleural effusion, not elsewhere classified; R10.9 Unspecified abdominal pain; I48.0 Paroxysmal atrial fibrillation; I11.0 Hypertensive heart disease with heart failure; I50.31 Acute diastolic (congestive) heart failure; E78.5 Hyperlipidemia, unspecified; D50.9 Iron deficiency anemia, unspecified; Z79.891 Long term (current) use of opiate analgesic; Z79.899 Other long term (current) drug therapy
CPT/HCPCS: 74160; G0463; Q9967

== ENCOUNTER 2023-08-16 20:52 | Inpatient (IN) | payer MEDICARE, BC ==
[~2023-08-16] VITALS: Ht 180.3 cm; Wt 90.9 kg
[~2023-08-16 20:52] MED LIST changes: -IOHEXOL 350 MG/ML 100ML IJ ONE
[2023-08-16 21:36] LABS: Alanine Aminotransferase 113 U/L (7-40); Albumin 3.9 g/dL (3.2-4.8); Alkaline Phosphatase 143 U/L (46-116); Anion Gap 9 (5-15); Aspartate Aminotransferase 127 U/L (13-40); BUN/Creatinine Ratio 13.1 (10.0-20.0); Blood Urea Nitrogen 20 mg/dL (9-23); Carbon Dioxide 25 mmol/L (20-30); Chloride 102 mmol/L (98-107); Glucose 122 mg/dL (74-106); Magnesium 1.8 mg/dL (1.6-2.6); Sodium 136 mmol/L (136-145)
[2023-08-16 21:37] LABS: Bilirubin, Total 0.8 mg/dL (0.2-1.0); Total Protein 6.9 g/dL (5.7-8.2)
[2023-08-16 21:54] LABS: Basophils # (auto) 0 10 ^3/uL (0-0.2); Eosinophils # (auto) 0.1 10 ^3/uL (0-0.8); Hemoglobin 10.7 g/dL (13.5-17.5); White Blood Cell 5.8 10^3/uL (4.4-10.8)
[2023-08-16 21:55] LABS: Basophils % (auto) 0.5 % (0.0-2.0); Eosinophils % (auto) 1.3 % (0.0-7.0); Hematocrit 34.1 % (41.0-53.0); Lymphocytes # (auto) 1.4 10 ^3/uL (0.4-5.4); Lymphocytes % (auto) 23.4 % (10.0-50.0); Mean Corpuscular Hemoglobin 25.7 pg (28.0-32.0); Mean Corpuscular Hgb Conc. 31.4 g/dL (32.0-36.0); Monocytes # (auto) 0.8 10 ^3/uL (0-1.3); Monocytes % (auto) 13.7 % (0.0-12.0); Neutrophils # (auto) 3.5 10 ^3/uL (1.6-8.6); Neutrophils % (auto) 61.1 % (37.0-80.0); Red Blood Cells 4.16 10^6/uL (4.5-5.90)
[2023-08-16 22:02] LABS: Urine Bacteria NONE SEEN /hpf (None Seen); Urine Blood Negative /uL (Negative); Urine Clarity Clear (Clear); Urine Color Yellow (Yellow); Urine Hyaline Cast FEW /lpf (0 - 2); Urine Mucus FEW (None Seen); Urine Protein, UAD 1+ (Negative); Urine Specific Gravity 1.014 (1.001-1.035); Urine Urobilinogen Normal (Negative); Urine WBC 2 /hpf (0 - 3)
[2023-08-16 22:14] LABS: INR 1.14 (0.9-1.15); Partial Thromboplastin Time 28.8 SEC (24.5-34.5); Prothrombin Time 11.9 sec (9.3-11.8)
[2023-08-16] MEDS ORDERED: FUROSEMIDE 20 MG/2 ML VIAL IV ONE (22:30)
[2023-08-17] MEDS ORDERED: IOHEXOL 350 MG/ML 100ML IJ ONE (00:56)
[2023-08-17] MEDS ORDERED: HYDROcodone-ACET 5/325MG TAB PO PRN (01:15)
[2023-08-17] MEDS ORDERED: MORPHINE SULFATE INJ 2 MG/ml SYRG IV PRN (01:15)
[2023-08-17] MEDS ORDERED: ACETAMINOPHEN 325 MG TAB PO PRN (01:15)
[2023-08-17] MEDS ORDERED: DOCUSATE SOD 100 MG CAP PO PRN (01:15)
[2023-08-17] MEDS ORDERED: NITROGLYCERIN 0.4 MG SL TAB SL PRN (01:15)
[2023-08-17] MEDS ORDERED: ONDANSETRON HCL 4 MG/2 ML VIAL IV PRN (01:15)
[2023-08-17] MEDS ORDERED: IBUPROFEN 600 MG TAB PO PRN (03:15)
[2023-08-17 08:00] VITALS: BP 121/81; PULSE 79; PULSE 84; RESP 16; TEMP 98; O2SAT 96
[2023-08-17] MEDS ORDERED: POTA10TA51 PO (08:13)
[2023-08-17] MEDS ORDERED: TEMA30CA PO (08:13)
[2023-08-17] MEDS: APIXABAN 2.5 MG TAB PO SCH ×2 (09:21→22:08)
[2023-08-17] MEDS: SODIUM CHLOR 0.9% PF (SALINE LOCK) 10ML VIAL/SYR IV SCH ×3 (09:25→22:10)
[2023-08-17] MEDS ORDERED: ASCORBIC ACID 500 MG TAB PO SCH (10:00)
[2023-08-17] MEDS ORDERED: FAMOTIDINE (10MG/ML) 2ML VL IV SCH (10:00)
[2023-08-17] MEDS ORDERED: CARVEDILOL 3.125 MG TAB PO SCH (10:00)
[2023-08-17] MEDS ORDERED: FUROSEMIDE 20 MG/2 ML VIAL IV SCH (10:00)
[2023-08-17] MEDS ORDERED: POTASSIUM CHL 10 Meq TABLET PO ONE (11:30)
[2023-08-17] MEDS ORDERED: FUROSEMIDE 20 MG/2 ML VIAL IV ONE (11:30)
[2023-08-17 11:43] LABS: Basophils # (auto) 0 10 ^3/uL (0-0.2); Eosinophils # (auto) 0 10 ^3/uL (0-0.8); Hemoglobin 9.7 g/dL (13.5-17.5); Lymphocytes # (auto) 0.6 10 ^3/uL (0.4-5.4); Monocytes # (auto) 0.7 10 ^3/uL (0-1.3); Neutrophils # (auto) 3.5 10 ^3/uL (1.6-8.6); Nucleated Red Blood Cells % 0.1 %; White Blood Cell 4.9 10^3/uL (4.4-10.8)
[2023-08-17 11:46] LABS: Basophils % (auto) 0.7 % (0.0-2.0); Eosinophils % (auto) 0.2 % (0.0-7.0); Hematocrit 30.5 % (41.0-53.0); Lymphocytes % (auto) 12.6 % (10.0-50.0); Mean Corpuscular Hemoglobin 25.7 pg (28.0-32.0); Mean Corpuscular Hgb Conc. 31.7 g/dL (32.0-36.0); Mean Corpuscular Volume 81.2 fL (80.0-100.0); Monocytes % (auto) 15.3 % (0.0-12.0); Neutrophils % (auto) 71.2 % (37.0-80.0); Red Blood Cells 3.75 10^6/uL (4.5-5.90); Red Cell Distribution Width 19.9 % (11.8-14.3)
[2023-08-17] MEDS: AMIODARONE HCL 200 MG TAB PO SCH (11:59)
[2023-08-17 12:00] VITALS: BP 110/75; PULSE 77; RESP 18; TEMP 98.1; O2SAT 96
[2023-08-17 12:05] LABS: Alanine Aminotransferase 98 U/L (7-40); Albumin 3.6 g/dL (3.2-4.8); Alkaline Phosphatase 106 U/L (46-116); Anion Gap 6 (5-15); Aspartate Aminotransferase 99 U/L (13-40); BUN/Creatinine Ratio 13.1 (10.0-20.0); Blood Urea Nitrogen 19 mg/dL (9-23); Calcium 8.8 mg/dL (8.7-10.4); Carbon Dioxide 29 mmol/L (20-30); Chloride 102 mmol/L (98-107); Glucose 95 mg/dL (74-106); Potassium 3.6 mmol/L (3.5-5.1); Sodium 137 mmol/L (136-145)
[2023-08-17 12:06] LABS: Bilirubin, Total 0.8 mg/dL (0.2-1.0); Total Protein 6.3 g/dL (5.7-8.2)
[2023-08-17 12:08] LABS: Free T3 2.46 pg/mL (2.3-4.2)
[2023-08-17 12:09] LABS: Free T4 (Free Thyroxine) 1.51 ng/dL (0.89-1.76)
[2023-08-17 16:00] VITALS: BP 122/71; PULSE 78; RESP 18; TEMP 97.7; O2SAT 94
[2023-08-17] MEDS: FUROSEMIDE 20 MG/2 ML VIAL IV SCH (17:18)
[2023-08-17 20:00] VITALS: BP 122/78; PULSE 82; PULSE 86; RESP 17; O2SAT 96
[2023-08-17] MEDS ORDERED: ATORVASTATIN 20 MG TAB PO SCH (22:00)
[2023-08-17] MEDS: ATORVASTATIN 20 MG TAB PO SCH (22:08)
[2023-08-17 22:14] VITALS: BP 116/75; PULSE 89; RESP 17; TEMP 97.7; O2SAT 96
[2023-08-18] VITALS (7 sets, daily range): BP systolic 102–120; BP diastolic 67–80; PULSE 77–90; RESP 16–17; TEMP 97.8–98.3; O2SAT 92–99
[2023-08-18] MEDS: SODIUM CHLOR 0.9% PF (SALINE LOCK) 10ML VIAL/SYR IV SCH ×3 (06:01→21:51)
[2023-08-18] MEDS: FUROSEMIDE 20 MG/2 ML VIAL IV SCH ×2 (06:01→18:00)
[2023-08-18 06:23] LABS: Alanine Aminotransferase 84 U/L (7-40); Alkaline Phosphatase 99 U/L (46-116); Anion Gap 6 (5-15); BUN/Creatinine Ratio 13.2 (10.0-20.0); Blood Urea Nitrogen 21 mg/dL (9-23); Calcium 8.9 mg/dL (8.7-10.4); Carbon Dioxide 31 mmol/L (20-30); Chloride 102 mmol/L (98-107); Glucose 95 mg/dL (74-106); Potassium 3.3 mmol/L (3.5-5.1); Sodium 139 mmol/L (136-145)
[2023-08-18 06:24] LABS: Albumin 3.4 g/dL (3.2-4.8); Aspartate Aminotransferase 83 U/L (13-40); Bilirubin, Total 0.9 mg/dL (0.2-1.0)
[2023-08-18 06:31] LABS: Basophils # (auto) 0 10 ^3/uL (0-0.2); Eosinophils # (auto) 0.1 10 ^3/uL (0-0.8); Lymphocytes # (auto) 0.8 10 ^3/uL (0.4-5.4); Neutrophils # (auto) 3.8 10 ^3/uL (1.6-8.6)
[2023-08-18 06:34] LABS: Basophils % (auto) 0.7 % (0.0-2.0); Eosinophils % (auto) 1.4 % (0.0-7.0); Hematocrit 30.4 % (41.0-53.0); Hemoglobin 9.5 g/dL (13.5-17.5); Mean Corpuscular Hemoglobin 25.1 pg (28.0-32.0); Mean Corpuscular Hgb Conc. 31.3 g/dL (32.0-36.0); Mean Corpuscular Volume 80.4 fL (80.0-100.0); Monocytes # (auto) 0.8 10 ^3/uL (0-1.3); Monocytes % (auto) 15.3 % (0.0-12.0); Neutrophils % (auto) 68.6 % (37.0-80.0); Nucleated Red Blood Cells % 0.1 %; Red Blood Cells 3.78 10^6/uL (4.5-5.90); Red Cell Distribution Width 20.3 % (11.8-14.3); White Blood Cell 5.5 10^3/uL (4.4-10.8)
[2023-08-18] MEDS: APIXABAN 2.5 MG TAB PO SCH ×2 (08:41→21:50)
[2023-08-18] MEDS: POTASSIUM CHL 10 Meq TABLET PO SCH (08:41)
[2023-08-18] MEDS: AMIODARONE HCL 200 MG TAB PO SCH (08:42)
[2023-08-18] MEDS: FINASTERIDE 5 MG TAB PO SCH (08:42)
[2023-08-18] MEDS: METOPROLOL SUCCINATE XL 50 MG TAB PO SCH (08:43)
[2023-08-18] MEDS ORDERED: metOLazone 5 MG TAB PO ONE (15:00)
[2023-08-18] MEDS: ATORVASTATIN 20 MG TAB PO SCH (21:50)
[2023-08-19 05:00] VITALS: BP 125/84; PULSE 89; RESP 17; TEMP 98.3; O2SAT 96
[2023-08-19] MEDS: SODIUM CHLOR 0.9% PF (SALINE LOCK) 10ML VIAL/SYR IV SCH ×2 (05:26→14:45)
[2023-08-19] MEDS: FUROSEMIDE 20 MG/2 ML VIAL IV SCH ×2 (05:26→18:00)
[2023-08-19 08:00] VITALS: PULSE 83; PULSE 84; RESP 17; O2SAT 95
[2023-08-19] MEDS: FINASTERIDE 5 MG TAB PO SCH (09:08)
[2023-08-19] MEDS: POTASSIUM CHL 10 Meq TABLET PO SCH (09:09)
[2023-08-19] MEDS: APIXABAN 2.5 MG TAB PO SCH (09:09)
[2023-08-19] MEDS: AMIODARONE HCL 200 MG TAB PO SCH (09:10)
[2023-08-19] MEDS: METOPROLOL SUCCINATE XL 50 MG TAB PO SCH (09:15)
[2023-08-19 13:00] VITALS: BP 93/62; PULSE 87; RESP 19; TEMP 98.1; O2SAT 94
[2023-08-19] MEDS ORDERED: LEVO500T91 PO (14:21)
[2023-08-19] MEDS ORDERED: levoFLOXacin 500MG 100 ML IV ONE (14:30)
[2023-08-19 16:56] VITALS: BP 104/69; PULSE 80; RESP 18; TEMP 97.8; O2SAT 94
[2023-08-19 16:58] VITALS: BP 104/69; PULSE 80; RESP 18; TEMP 97.8; O2SAT 94
[2023-08-20 12:28] LABS: Hepatitis A Total Antibody Negative (Negative); Hepatitis B Core Total AB Negative (Negative); Hepatitis B Surface Antibody Negative (Negative)
[2023-08-20 12:29] LABS: Hepatitis B Surface Antigen Negative (Negative); Hepatitis C Antibody Negative (Negative)
== END 2023-08-19 17:42 | disposition home or self-care (01) | DRG 291 ==
LOC: ER 20:52 → TELE 08-17 01:27 → TELE-EAST 08-17 06:11
PROVIDERS: ADMIT Nurse Practitioner Family; ATTEND Internal Medicine
DX: I13.0 Hypertensive heart and chronic kidney disease with heart failure and stage 1 through stage 4 chronic kidney disease, or unspecified chronic kidney disease (principal); I50.43 Acute on chronic combined systolic (congestive) and diastolic (congestive) heart failure; D68.69 Other thrombophilia; L03.116 Cellulitis of left lower limb; E78.5 Hyperlipidemia, unspecified; I48.91 Unspecified atrial fibrillation; R94.6 Abnormal results of thyroid function studies; N18.30 Chronic kidney disease, stage 3 unspecified; R74.01 Elevation of levels of liver transaminase levels; N40.0 Benign prostatic hyperplasia without lower urinary tract symptoms
CPT/HCPCS: 36415; 71045; 73700; 76705; 80053; 81001; 83735; 83880; 84439; 84443; 84481; 84484; 85025; 85379; 85610; 85730; 86704; 86706; 86708; 86803; 87340; 93005; 93970; 97163; G0378; J1956; J3490

== ENCOUNTER → 2023-08-27 | Outpatient (CLI) | payer MEDICARE, BC ==
[~2023-08-27] MED LIST changes: +LEVO500T91 PO; +POTA10TA51 PO
== END | disposition home or self-care (01) ==
LOC: Rad HDHVI 10:58
PROVIDERS: ATTEND Internal Medicine Cardiovascular Disease
DX: I08.3 Combined rheumatic disorders of mitral, aortic and tricuspid valves (principal); I27.21 Secondary pulmonary arterial hypertension; R06.02 Shortness of breath; R00.2 Palpitations
CPT/HCPCS: 93306

== ENCOUNTER 2023-12-17 11:23 | Inpatient (IN) | payer MEDICARE, BC ==
[~2023-12-17] VITALS: Ht 180.3 cm; Wt 84.8 kg
[2023-12-17 12:14] LABS: Urine Bacteria NONE SEEN /hpf (None Seen); Urine Blood 3+ /uL (Negative); Urine Clarity HAZY (Clear); Urine Color Red (Yellow); Urine Mucus FEW (None Seen); Urine Protein, UAD 1+ (Negative); Urine Specific Gravity 1.022 (1.001-1.035); Urine Urobilinogen Normal (Negative); Urine WBC 389 /hpf (0 - 3); Urine WBC Clumps PRESENT /hpf (None Seen); Urine pH 5.5 (5.0-8.0)
[2023-12-17 13:23] LABS: Basophils # (auto) 0.1 10 ^3/uL (0-0.2); Basophils % (auto) 1.4 % (0.0-2.0); Eosinophils # (auto) 0 10 ^3/uL (0-0.8); Eosinophils % (auto) 0.1 % (0.0-7.0); Hematocrit 36.8 % (41.0-53.0); Hemoglobin 11.8 g/dL (13.5-17.5); Lymphocytes # (auto) 0.7 10 ^3/uL (0.4-5.4); Lymphocytes % (auto) 12.2 % (10.0-50.0); Mean Corpuscular Hemoglobin 27.3 pg (28.0-32.0); Mean Corpuscular Hgb Conc. 32.1 g/dL (32.0-36.0); Monocytes # (auto) 0.6 10 ^3/uL (0-1.3); Neutrophils # (auto) 4.4 10 ^3/uL (1.6-8.6); Neutrophils % (auto) 75.3 % (37.0-80.0); Nucleated Red Blood Cells % 0.1 %; Red Blood Cells 4.34 10^6/uL (4.5-5.90); Red Cell Distribution Width 18.1 % (11.8-14.3); White Blood Cell 5.9 10^3/uL (4.4-10.8)
[2023-12-17 13:39] LABS: Chloride 100 mmol/L (98-107); INR 1.06 (0.9-1.15); Potassium 4.5 mmol/L (3.5-5.1); Prothrombin Time 11.1 sec (9.3-11.8); Sodium 137 mmol/L (136-145)
[2023-12-17 13:40] LABS: Anion Gap 3 (5-15); Calcium 10.4 mg/dL (8.5-10.1); Carbon Dioxide 34 mmol/L (20-30)
[2023-12-17 13:45] LABS: BUN/Creatinine Ratio 23.3 (10.0-20.0); Blood Urea Nitrogen 40 mg/dL (9-23); Glucose 123 mg/dL (74-106)
[2023-12-17] MEDS: cefTRIAXone SOD 1,000 MG VL IM ONE (16:30)
[2023-12-17] MEDS ORDERED: BUME2TAB5 PO (19:14)
[2023-12-17] MEDS ORDERED: DOCUSATE SOD 100 MG CAP PO PRN (19:15)
[2023-12-17] MEDS ORDERED: ONDANSETRON HCL 4 MG/2 ML VIAL IV PRN (19:15)
[2023-12-17] MEDS ORDERED: MORPHINE SULFATE INJ 2 MG/ml SYRG IV PRN ×2 (19:15)
[2023-12-17] MEDS ORDERED: ACETAMINOPHEN 325 MG TAB PO PRN (19:15)
[2023-12-17] MEDS ORDERED: NITROGLYCERIN 0.4 MG SL TAB SL PRN (19:15)
[2023-12-17] MEDS: Niacin 500mg TAB ER PO SCH (22:00)
[2023-12-17 22:30] VITALS: RESP 16; O2SAT 98
[2023-12-17] MEDS: SODIUM CHLORIDE 0.9% 1,000 ML IV ONE (22:54)
[2023-12-18 06:28] LABS: Basophils # (auto) 0 10 ^3/uL (0-0.2); Basophils % (auto) 0.5 % (0.0-2.0); Eosinophils # (auto) 0 10 ^3/uL (0-0.8); Eosinophils % (auto) 0.6 % (0.0-7.0); Hematocrit 35.7 % (41.0-53.0); Hemoglobin 11.6 g/dL (13.5-17.5); Lymphocytes # (auto) 0.9 10 ^3/uL (0.4-5.4); Lymphocytes % (auto) 16.6 % (10.0-50.0); Mean Corpuscular Hemoglobin 27.7 pg (28.0-32.0); Mean Corpuscular Hgb Conc. 32.6 g/dL (32.0-36.0); Mean Corpuscular Volume 84.9 fL (80.0-100.0); Monocytes # (auto) 0.8 10 ^3/uL (0-1.3); Monocytes % (auto) 13.8 % (0.0-12.0); Neutrophils # (auto) 3.8 10 ^3/uL (1.6-8.6); Neutrophils % (auto) 68.5 % (37.0-80.0); Red Cell Distribution Width 17.7 % (11.8-14.3); White Blood Cell 5.6 10^3/uL (4.4-10.8)
[2023-12-18 06:46] LABS: Alanine Aminotransferase 230 U/L (7-40); Albumin 4.3 g/dL (3.2-4.8); Alkaline Phosphatase 118 U/L (46-116); Anion Gap 5 (5-15); Aspartate Aminotransferase 189 U/L (13-40); Blood Urea Nitrogen 33 mg/dL (9-23); Calcium 10.4 mg/dL (8.7-10.4); Carbon Dioxide 32 mmol/L (20-30); Chloride 102 mmol/L (98-107); Glucose 109 mg/dL (74-106); Potassium 4.3 mmol/L (3.5-5.1); Sodium 139 mmol/L (136-145)
[2023-12-18 06:47] LABS: Bilirubin, Total 0.8 mg/dL (0.2-1.0); Total Protein 7.8 g/dL (5.7-8.2)
[2023-12-18] MEDS ORDERED: POTA-180 PO (09:51)
[2023-12-18] MEDS ORDERED: LINA1CAP2 PO (09:51)
[2023-12-18] MEDS ORDERED: AMIO400T3 PO (09:56)
[2023-12-18] MEDS: OMEPRAZOLE-SOD BICARB 20 MG POWDER PO SCH (10:00)
[2023-12-18] MEDS: LINACLOTIDE 145 MCG PO SCH (10:00)
[2023-12-18] MEDS: cefTRIAXone 1GM/50ML D5W 50 ML IV SCH (11:11)
[2023-12-18] MEDS: ATORVASTATIN 20 MG TAB PO SCH (11:15)
[2023-12-18] MEDS: AMIODARONE HCL 200 MG TAB PO SCH (11:17)
[2023-12-18] MEDS: FINASTERIDE 5 MG TAB PO SCH (11:17)
[2023-12-18] MEDS: METOPROLOL SUCCINATE XL 50 MG TAB PO SCH (11:18)
[2023-12-18] MEDS: HYDROcodone-ACET 5/325MG TAB PO PRN (11:18)
[2023-12-18] MEDS: BUMETANIDE 1 MG TAB PO SCH (11:19)
[2023-12-18 15:34] VITALS: PULSE 20; RESP 20; O2SAT 96
[2023-12-18] MEDS ORDERED: MIDAZOLAM HCL 2MG/2ML 2ml VIAL (1mg/ml) ONE (18:57)
[2023-12-18] MEDS ORDERED: fentaNYL CITRATE 100 MCG/2 ML VL ONE (18:57)
[2023-12-18] MEDS ORDERED: ONDANSETRON HCL 4 MG/2 ML VIAL ONE (19:48)
[2023-12-18] MEDS ORDERED: PROPOFOL 10 MG/ML 20 ML IV ONE (19:49)
[2023-12-18] MEDS ORDERED: LIDOCAINE 2% (LOCAL ANESTH.) PF 5ml SDV ONE (19:51)
[2023-12-18] MEDS ORDERED: ROCURONIUM 10MG/ML 10ML VIAL IV ONE (19:51)
[2023-12-18] MEDS ORDERED: NEOSTIGMINE 1 MG/ML INJ (10mg/10ML VIAL) ONE (19:58)
[2023-12-18] MEDS ORDERED: GLYCOPYRROLATE 0.2 MG/ML 1ML VIAL ONE (19:58)
[2023-12-18 20:00] VITALS: PULSE 85; RESP 19; O2SAT 98
[2023-12-18 20:06] VITALS: PULSE 96; RESP 16; O2SAT 100
[2023-12-18] MEDS ORDERED: HYDROmorphone HCL 2 MG/ML VL/or syr IV PRN (20:15)
[2023-12-18 20:20] VITALS: PULSE 93; RESP 19; O2SAT 100
[2023-12-18] MEDS: MEPERIDINE HCL (25 MG/ML) 1ML VIAL IM ONE (20:21)
[2023-12-18] MEDS: ONDANSETRON HCL 4 MG/2 ML VIAL IV ONE (20:45)
[2023-12-18 21:00] VITALS: BP 122/92; PULSE 79; RESP 17; TEMP 98.5; O2SAT 97
[2023-12-18] MEDS: MEPERIDINE HCL (25 MG/ML) 1ML VIAL ONE (21:58)
[2023-12-19] VITALS (8 sets, daily range): BP systolic 90–115; BP diastolic 56–68; PULSE 66–113; RESP 16–19; TEMP 97.5–98.6; O2SAT 94–100
[2023-12-19 05:47] LABS: Basophils # (auto) 0 10 ^3/uL (0-0.2); Basophils % (auto) 0.2 % (0.0-2.0); Eosinophils # (auto) 0 10 ^3/uL (0-0.8); Eosinophils % (auto) 0.6 % (0.0-7.0); Hematocrit 32.6 % (41.0-53.0); Hemoglobin 10.4 g/dL (13.5-17.5); Lymphocytes # (auto) 0.6 10 ^3/uL (0.4-5.4); Lymphocytes % (auto) 9.2 % (10.0-50.0); Mean Corpuscular Hemoglobin 27.2 pg (28.0-32.0); Mean Corpuscular Hgb Conc. 31.9 g/dL (32.0-36.0); Monocytes # (auto) 0.8 10 ^3/uL (0-1.3); Monocytes % (auto) 12.2 % (0.0-12.0); Neutrophils # (auto) 5.4 10 ^3/uL (1.6-8.6); Neutrophils % (auto) 77.8 % (37.0-80.0); Red Blood Cells 3.84 10^6/uL (4.5-5.90); Red Cell Distribution Width 17.8 % (11.8-14.3)
[2023-12-19 06:12] LABS: Alanine Aminotransferase 176 U/L (7-40); Alkaline Phosphatase 98 U/L (46-116); Anion Gap 3 (5-15); Blood Urea Nitrogen 26 mg/dL (9-23); Calcium 9.5 mg/dL (8.5-10.1); Carbon Dioxide 35 mmol/L (20-30); Chloride 103 mmol/L (98-107); Glucose 92 mg/dL (74-106); Potassium 4.2 mmol/L (3.5-5.1); Sodium 141 mmol/L (136-145)
[2023-12-19 06:14] LABS: Albumin 3.6 g/dL (3.2-4.8); Aspartate Aminotransferase 145 U/L (13-40); Bilirubin, Total 0.9 mg/dL (0.2-1.0); Total Protein 6.5 g/dL (5.7-8.2)
[2023-12-19] MEDS: PANTOPRAZOLE 40 MG TAB PO SCH (09:11)
[2023-12-19] MEDS: SODIUM CHLORIDE 0.9% 1,000 ML IV ONE (17:02)
[2023-12-20 05:00] VITALS: BP 110/60; PULSE 111; RESP 18; TEMP 97.8; O2SAT 97
[2023-12-20 06:52] LABS: Basophils # (auto) 0 10 ^3/uL (0-0.2); Basophils % (auto) 0.4 % (0.0-2.0); Eosinophils # (auto) 0 10 ^3/uL (0-0.8); Eosinophils % (auto) 0.5 % (0.0-7.0); Hematocrit 30.7 % (41.0-53.0); Hemoglobin 9.9 g/dL (13.5-17.5); Lymphocytes # (auto) 0.8 10 ^3/uL (0.4-5.4); Lymphocytes % (auto) 12.2 % (10.0-50.0); Mean Corpuscular Hemoglobin 27.3 pg (28.0-32.0); Mean Corpuscular Hgb Conc. 32.3 g/dL (32.0-36.0); Mean Corpuscular Volume 84.5 fL (80.0-100.0); Monocytes # (auto) 0.9 10 ^3/uL (0-1.3); Monocytes % (auto) 13.7 % (0.0-12.0); Neutrophils # (auto) 4.6 10 ^3/uL (1.6-8.6); Neutrophils % (auto) 73.2 % (37.0-80.0); Nucleated Red Blood Cells % 0.1 %; Red Blood Cells 3.63 10^6/uL (4.5-5.90); Red Cell Distribution Width 17.6 % (11.8-14.3); White Blood Cell 6.3 10^3/uL (4.4-10.8)
[2023-12-20 07:32] LABS: Anion Gap 4 (5-15); Carbon Dioxide 32 mmol/L (20-30); Chloride 103 mmol/L (98-107); Potassium 3.4 mmol/L (3.5-5.1); Sodium 139 mmol/L (136-145)
[2023-12-20 07:33] LABS: Calcium 8.9 mg/dL (8.5-10.1)
[2023-12-20 07:38] LABS: Blood Urea Nitrogen 19 mg/dL (9-23); Glucose 94 mg/dL (74-106)
[2023-12-20 09:00] VITALS: BP 109/64; PULSE 74; RESP 18; TEMP 97.8; O2SAT 77
[2023-12-20 12:51] VITALS: BP 130/73; PULSE 77; RESP 18; TEMP 97.8; O2SAT 96
[2023-12-20] MEDS ORDERED: CIPR-173 PO (13:19)
[2023-12-20] MEDS: POTASSIUM EFFERVESENT TAB 25 MEQ PO ONE (15:16)
== END 2023-12-20 17:00 | disposition home or self-care (01) | DRG 668 ==
LOC: ER 11:23 → TELE 19:14 → TELE-WESTW 12-18 17:08 → WEST WING 12-19 18:36
PROVIDERS: ADMIT Internal Medicine; ATTEND Internal Medicine
PROC: 0TBC8ZX Excision of Bladder Neck, Via Natural or Artificial Opening Endoscopic, Diagnostic (ICD-10-PCS; 2023-12-18)
PROC: 0TBB8ZZ Excision of Bladder, Via Natural or Artificial Opening Endoscopic (ICD-10-PCS; principal; 2023-12-18 19:06)
DX: D49.4 Neoplasm of unspecified behavior of bladder (principal); N17.0 Acute kidney failure with tubular necrosis; N39.0 Urinary tract infection, site not specified; I13.0 Hypertensive heart and chronic kidney disease with heart failure and stage 1 through stage 4 chronic kidney disease, or unspecified chronic kidney disease; N12 Tubulo-interstitial nephritis, not specified as acute or chronic; I50.42 Chronic combined systolic (congestive) and diastolic (congestive) heart failure; N28.1 Cyst of kidney, acquired; E78.5 Hyperlipidemia, unspecified; I48.91 Unspecified atrial fibrillation; N18.30 Chronic kidney disease, stage 3 unspecified; K21.9 Gastro-esophageal reflux disease without esophagitis; D64.9 Anemia, unspecified; E86.9 Volume depletion, unspecified; N40.0 Benign prostatic hyperplasia without lower urinary tract symptoms; R74.01 Elevation of levels of liver transaminase levels; Z79.01 Long term (current) use of anticoagulants
CPT/HCPCS: 36415; 71045; 74176; 76775; 80048; 80053; 81001; 85025; 85610; 87040; 87086; G0378; J0696; J2001; J2250; J2405; J2704

== ENCOUNTER 2024-05-09 08:01 | Inpatient (IN) | payer MEDICARE, BC ==
[~2024-05-09] VITALS: Ht 180.3 cm; Wt 98.7 kg
[~2024-05-09 08:01] MED LIST changes: -AMIO200T33 PO; +AMIO400T3 PO; +BUME2TAB5 PO; +CIPR-173 PO; -LEVO500T91 PO; -LINA145C PO; +LINA1CAP2 PO; -POM; -POM PO; +POTA-180 PO; -POTA10TA51 PO
[2024-05-09 08:48] VITALS: PULSE 95; RESP 18; O2SAT 97
[2024-05-09 09:13] LABS: Basophils # (auto) 0 10 ^3/uL (0-0.2); Eosinophils # (auto) 0 10 ^3/uL (0-0.8); Lymphocytes # (auto) 0.6 10 ^3/uL (0.4-5.4); Lymphocytes % (auto) 3.5 % (10.0-50.0); Monocytes # (auto) 1.5 10 ^3/uL (0-1.3)
[2024-05-09 09:17] LABS: Basophils % (auto) 0.1 % (0.0-2.0); Hematocrit 29.8 % (41.0-53.0); Hemoglobin 9.3 g/dL (13.5-17.5); Mean Corpuscular Hemoglobin 22.8 pg (28.0-32.0); Mean Corpuscular Hgb Conc. 31.3 g/dL (32.0-36.0); Mean Corpuscular Volume 72.9 fL (80.0-100.0); Monocytes % (auto) 9.5 % (0.0-12.0); Neutrophils # (auto) 13.9 10 ^3/uL (1.6-8.6); Neutrophils % (auto) 86.9 % (37.0-80.0); Red Blood Cells 4.09 10^6/uL (4.5-5.90); Red Cell Distribution Width 19.3 % (11.8-14.3); White Blood Cell 15.9 10^3/uL (4.4-10.8)
[2024-05-09 09:29] LABS: INR 1.13 (0.9-1.15); Prothrombin Time 11.9 sec (9.3-11.8)
[2024-05-09 09:44] LABS: Alanine Aminotransferase 196 U/L (7-40); Alkaline Phosphatase 149 U/L (46-116); Anion Gap 9 (5-15); Aspartate Aminotransferase 233 U/L (13-40); BUN/Creatinine Ratio 21.3 (10.0-20.0); Blood Urea Nitrogen 30 mg/dL (9-23); Calcium 9.8 mg/dL (8.7-10.4); Carbon Dioxide 23 mmol/L (20-30); Chloride 101 mmol/L (98-107); Glucose 119 mg/dL (74-106); Potassium 4.9 mmol/L (3.5-5.1); Sodium 133 mmol/L (136-145)
[2024-05-09 09:45] LABS: Albumin 3.9 g/dL (3.2-4.8); Bilirubin, Total 1.6 mg/dL (0.2-1.0); Total Protein 7.1 g/dL (5.7-8.2)
[2024-05-09 10:04] LABS: Urine Bacteria FEW /hpf (None Seen); Urine Blood Negative /uL (Negative); Urine Clarity Clear (Clear); Urine Color Yellow (Yellow); Urine Mucus FEW (None Seen); Urine Protein, UAD 1+ (Negative); Urine Specific Gravity 1.026 (1.001-1.035); Urine Urobilinogen 3 mg/dL (Negative); Urine WBC 2 /hpf (0 - 3); Urine pH 5.5 (5.0-9.0)
[2024-05-09] MEDS ORDERED: NITROGLYCERIN 0.4 MG SL TAB SL PRN (11:00)
[2024-05-09] MEDS ORDERED: MORPHINE SULFATE INJ 2 MG/ml SYRG IV PRN (11:00)
[2024-05-09] MEDS: FUROSEMIDE 40 MG/4 ML VIAL IV ONE (11:07)
[2024-05-09] MEDS ORDERED: metroNIDAZOLE 500MG/100ML 100 ML IV ONE (11:30)
[2024-05-09] MEDS ORDERED: cefTRIAXone 1GM/50ML D5W 50 ML IV ONE (11:30)
[2024-05-09] MEDS: cefTRIAXone 1GM/50ML D5W 50 ML IV ONE (11:53)
[2024-05-09] MEDS: metroNIDAZOLE 500MG/100ML 100 ML IV SCH (12:00)
[2024-05-09] MEDS: TEMAZEPAM 15 MG CAP PO SCH (18:00)
[2024-05-09 21:27] VITALS: PULSE 89; RESP 18; O2SAT 99
[2024-05-09] MEDS: AMIODARONE HCL 200 MG TAB PO SCH (21:46)
[2024-05-09] MEDS: APIXABAN 2.5 MG TAB PO SCH (21:46)
[2024-05-09] MEDS ORDERED: METOPROLOL SUCCINATE XL 50 MG TAB PO SCH (22:00)
[2024-05-10] VITALS (9 sets, daily range): BP systolic 99–128; BP diastolic 48–77; PULSE 62–91; RESP 18–20; TEMP 97.9–99.1; O2SAT 90–100
[2024-05-10] MEDS: MULTIPLE VITAMINS W/ MINERALS TAB PO SCH (09:06)
[2024-05-10] MEDS: PANTOPRAZOLE 40 MG TAB PO ONE (09:06)
[2024-05-10] MEDS: cefTRIAXone 1GM/50ML D5W 50 ML IV SCH (09:06)
[2024-05-10] MEDS: ASCORBIC ACID 500 MG TAB PO SCH (09:06)
[2024-05-10] MEDS: FINASTERIDE 5 MG TAB PO SCH (09:07)
[2024-05-10] MEDS: ATORVASTATIN 20 MG TAB PO SCH (09:07)
[2024-05-10] MEDS: Niacin 500mg TAB ER PO SCH (09:07)
[2024-05-10] MEDS: COENZYME Q10 300 MG PO SCH (09:15)
[2024-05-10] MEDS: [UNRECOGNIZED DRUG - OTHER] PO SCH (09:15)
[2024-05-10] MEDS: FATTY ACIDS PO SCH (09:16)
[2024-05-10] MEDS: MAGNESIUM OXIDE 500 MG PO SCH (09:16)
[2024-05-10] MEDS: NATURAL PRODUCTS PO SCH (09:16)
[2024-05-10] MEDS: OMEGA PO SCH (09:16)
[2024-05-10] MEDS: LINACLOTIDE BASE PO SCH (09:16)
[2024-05-11] VITALS (7 sets, daily range): BP systolic 105–129; BP diastolic 62–76; PULSE 71–93; RESP 16–20; TEMP 97.5–98.1; O2SAT 96–100
[2024-05-11] MEDS: PANTOPRAZOLE 40 MG TAB PO SCH (05:18)
[2024-05-11 11:03] LABS: Basophils # (auto) 0.1 10 ^3/uL (0-0.2); Basophils % (auto) 0.8 % (0.0-2.0); Eosinophils # (auto) 0 10 ^3/uL (0-0.8); Eosinophils % (auto) 0.2 % (0.0-7.0); Hematocrit 31.5 % (41.0-53.0); Hemoglobin 9.5 g/dL (13.5-17.5); Lymphocytes # (auto) 0.8 10 ^3/uL (0.4-5.4); Lymphocytes % (auto) 8.5 % (10.0-50.0); Mean Corpuscular Hgb Conc. 30.2 g/dL (32.0-36.0); Mean Corpuscular Volume 72.9 fL (80.0-100.0); Monocytes # (auto) 1.1 10 ^3/uL (0-1.3); Monocytes % (auto) 11.8 % (0.0-12.0); Neutrophils # (auto) 7.1 10 ^3/uL (1.6-8.6); Neutrophils % (auto) 78.7 % (37.0-80.0); Nucleated Red Blood Cells % 0.1 %; Red Blood Cells 4.32 10^6/uL (4.5-5.90); Red Cell Distribution Width 19.8 % (11.8-14.3)
[2024-05-11 11:19] LABS: Alanine Aminotransferase 168 U/L (7-40); Albumin 3.8 g/dL (3.2-4.8); Alkaline Phosphatase 151 U/L (46-116); Anion Gap 6 (5-15); Aspartate Aminotransferase 156 U/L (13-40); BUN/Creatinine Ratio 20.6 (10.0-20.0); Blood Urea Nitrogen 26 mg/dL (9-23); Calcium 9.3 mg/dL (8.7-10.4); Carbon Dioxide 27 mmol/L (20-30); Chloride 100 mmol/L (98-107); Glucose 104 mg/dL (74-106); Potassium 3.8 mmol/L (3.5-5.1); Sodium 133 mmol/L (136-145)
[2024-05-11 11:20] LABS: Bilirubin, Total 0.9 mg/dL (0.2-1.0); Total Protein 6.9 g/dL (5.7-8.2)
[2024-05-11] MEDS: AZITHROMYCIN 500MG/ 250ML 250 ML IV ONE (12:21)
[2024-05-11] MEDS ORDERED: ONDANSETRON HCL 4 MG/2 ML VIAL IV PRN (21:45)
[2024-05-11] MEDS: PRAZOSIN HCL 1 MG CAP PO SCH (21:52)
[2024-05-12] VITALS (8 sets, daily range): BP systolic 99–114; BP diastolic 50–80; PULSE 61–95; RESP 16–19; TEMP 97.6–98.3; O2SAT 92–99
[2024-05-12 08:50] LABS: Hepatitis B Core Total AB Negative (Negative)
[2024-05-12] MEDS ORDERED: AZITHROMYCIN 500MG/ 250ML 250 ML IV SCH (10:00)
[2024-05-12 11:35] LABS: Hepatitis A Total Antibody Positive (Negative)
[2024-05-12 11:37] LABS: Hepatitis B Surface Antibody Negative (Negative); Hepatitis B Surface Antigen Negative (Negative); Hepatitis C Antibody Negative (Negative)
[2024-05-12] MEDS: FUROSEMIDE 20 MG/2 ML VIAL IV ONE (12:00)
[2024-05-12] MEDS: ONDANSETRON HCL 4 MG/2 ML VIAL IV PRN (12:26)
[2024-05-12 12:27] LABS: Alanine Aminotransferase 128 U/L (7-40); Albumin 3.1 g/dL (3.2-4.8); Alkaline Phosphatase 117 U/L (46-116); Anion Gap 4 (5-15); Aspartate Aminotransferase 104 U/L (13-40); BUN/Creatinine Ratio 16.7 (10.0-20.0); Bilirubin, Total 0.8 mg/dL (0.2-1.0); Blood Urea Nitrogen 21 mg/dL (9-23); Calcium 8.9 mg/dL (8.7-10.4); Carbon Dioxide 27 mmol/L (20-30); Chloride 104 mmol/L (98-107); Glucose 103 mg/dL (74-106); Potassium 3.9 mmol/L (3.5-5.1); Sodium 135 mmol/L (136-145); Total Protein 5.5 g/dL (5.7-8.2)
[2024-05-12 12:30] LABS: Basophils # (auto) 0 10 ^3/uL (0-0.2); Eosinophils # (auto) 0 10 ^3/uL (0-0.8); Hemoglobin 8.1 g/dL (13.5-17.5); Lymphocytes # (auto) 0.5 10 ^3/uL (0.4-5.4); Lymphocytes % (auto) 9.5 % (10.0-50.0); Monocytes # (auto) 0.7 10 ^3/uL (0-1.3); Neutrophils # (auto) 3.9 10 ^3/uL (1.6-8.6)
[2024-05-12 12:34] LABS: Basophils % (auto) 0.4 % (0.0-2.0); Eosinophils % (auto) 0.5 % (0.0-7.0); Hematocrit 26.7 % (41.0-53.0); Mean Corpuscular Hgb Conc. 30.4 g/dL (32.0-36.0); Mean Corpuscular Volume 72.4 fL (80.0-100.0); Monocytes % (auto) 13.1 % (0.0-12.0); Neutrophils % (auto) 76.5 % (37.0-80.0); Nucleated Red Blood Cells % 0.1 %; Red Blood Cells 3.69 10^6/uL (4.5-5.90); Red Cell Distribution Width 19.6 % (11.8-14.3); White Blood Cell 5.1 10^3/uL (4.4-10.8)
[2024-05-12] MEDS: DOCUSATE SOD 100 MG CAP PO PRN (16:27)
[2024-05-12] MEDS: Ensure HIGH Protein Chocolate 8oz Bottle PO SCH (17:39)
[2024-05-13 05:00] VITALS: BP 115/66; PULSE 72; RESP 18; TEMP 97.9; O2SAT 97
[2024-05-13 09:00] VITALS: BP 108/55; PULSE 86; RESP 20; TEMP 98.2; O2SAT 93
[2024-05-13] MEDS: FUROSEMIDE 20 MG/2 ML VIAL IV SCH (09:15)
[2024-05-13] MEDS ORDERED: traMADol HCL 50 MG TAB PO PRN (09:15)
[2024-05-13] MEDS: AMIODARONE HCL 200 MG TAB PO SCH (09:20)
[2024-05-13 10:49] LABS: Basophils # (auto) 0 10 ^3/uL (0-0.2); Eosinophils # (auto) 0 10 ^3/uL (0-0.8); Eosinophils % (auto) 0.1 % (0.0-7.0); White Blood Cell 5.3 10^3/uL (4.4-10.8)
[2024-05-13 10:53] LABS: Basophils % (auto) 0.4 % (0.0-2.0); Hemoglobin 8.7 g/dL (13.5-17.5); Lymphocytes # (auto) 0.3 10 ^3/uL (0.4-5.4); Lymphocytes % (auto) 6.6 % (10.0-50.0); Mean Corpuscular Hemoglobin 22.3 pg (28.0-32.0); Mean Corpuscular Volume 72.1 fL (80.0-100.0); Monocytes # (auto) 0.6 10 ^3/uL (0-1.3); Neutrophils # (auto) 4.3 10 ^3/uL (1.6-8.6); Neutrophils % (auto) 80.9 % (37.0-80.0); Nucleated Red Blood Cells % 0.1 %; Red Blood Cells 3.89 10^6/uL (4.5-5.90); Red Cell Distribution Width 20.2 % (11.8-14.3)
[2024-05-13 11:02] LABS: Alanine Aminotransferase 117 U/L (7-40); Albumin 3.3 g/dL (3.2-4.8); Alkaline Phosphatase 152 U/L (46-116); Anion Gap 4 (5-15); Aspartate Aminotransferase 115 U/L (13-40); BUN/Creatinine Ratio 13.7 (10.0-20.0); Blood Urea Nitrogen 17 mg/dL (9-23); Carbon Dioxide 28 mmol/L (20-30); Chloride 103 mmol/L (98-107); Glucose 113 mg/dL (74-106); Potassium 3.7 mmol/L (3.5-5.1); Sodium 135 mmol/L (136-145)
[2024-05-13 11:03] LABS: Bilirubin, Total 0.8 mg/dL (0.2-1.0); Total Protein 6.1 g/dL (5.7-8.2)
[2024-05-13] MEDS: SODIUM FERR GLUC 62.5MG/5ML 110 ML IV SCH (12:09)
[2024-05-13 13:00] VITALS: BP 105/63; PULSE 66; RESP 17; TEMP 97.9; O2SAT 93
[2024-05-13 14:51] VITALS: BP 108/55; TEMP 36.6
== END 2024-05-13 16:20 | disposition home health service (06) | DRG 291 ==
LOC: ER 08:01 → TELE 11:28 → TELE-EAST 23:19 → EAST 05-12 18:16
PROVIDERS: ADMIT Internal Medicine; ATTEND Internal Medicine
DX: I13.0 Hypertensive heart and chronic kidney disease with heart failure and stage 1 through stage 4 chronic kidney disease, or unspecified chronic kidney disease (principal); I50.23 Acute on chronic systolic (congestive) heart failure; E87.1 Hypo-osmolality and hyponatremia; J98.11 Atelectasis; B15.9 Hepatitis A without hepatic coma; R65.10 Systemic inflammatory response syndrome (SIRS) of non-infectious origin without acute organ dysfunction; I48.91 Unspecified atrial fibrillation; K21.9 Gastro-esophageal reflux disease without esophagitis; R74.01 Elevation of levels of liver transaminase levels; K44.9 Diaphragmatic hernia without obstruction or gangrene; N40.0 Benign prostatic hyperplasia without lower urinary tract symptoms; D50.9 Iron deficiency anemia, unspecified; K80.20 Calculus of gallbladder without cholecystitis without obstruction; E78.5 Hyperlipidemia, unspecified; G47.00 Insomnia, unspecified; N28.1 Cyst of kidney, acquired; K58.9 Irritable bowel syndrome, unspecified; N18.31 Chronic kidney disease, stage 3a; W06.XXXA Fall from bed, initial encounter; E86.9 Volume depletion, unspecified; C67.9 Malignant neoplasm of bladder, unspecified; K29.70 Gastritis, unspecified, without bleeding; Z82.49 Family history of ischemic heart disease and other diseases of the circulatory system; I49.5 Sick sinus syndrome
CPT/HCPCS: 36415; 70450; 71045; 71250; 72148; 76705; 78226; 80053; 81001; 82550; 82607; 83036; 83540; 83550; 83690; 83880; 84443; 84484; 85025; 85610; 86704; 86706; 86708; 86803; 87040; 87340; 93005; 93306; 93970; 96365; 96375; 97110; 97116; 97163; 97530; G0378; J2405; J3490

== ENCOUNTER → 2024-05-21 | Outpatient (CLI) | payer MEDICARE, BC ==
[~2024-05-21] VITALS: Ht 30.5 cm; Wt 0.5 kg
[~2024-05-21] MED LIST changes: +PATIENTS OWN MEDICATION (FERRLECIT 125 MG) IV ONE
[2024-05-21 11:53] VITALS: BP 123/69; PULSE 74; RESP 16; O2SAT 97
[2024-05-21] MEDS: SODIUM FERRIC GLUC CPLEX 62.5MG/5ML VIAL IV ONE (12:11)
[2024-05-21] MEDS: TESTOSTERONE CYPIONATE 200 MG/ML 1ML VIAL IM ONE ×2 (12:11→13:18)
[2024-05-21] MEDS: CYANOCOBALAMIN (B-12) 1000 MCG/1 ML VIAL ONE (12:11)
[2024-05-21] MEDS: CYANOCOBALAMIN (B-12) 1000 MCG/1 ML VIAL IM ONE (13:19)
[2024-05-21 13:25] VITALS: BP 104/62; PULSE 65; RESP 16; O2SAT 97
[2024-05-21] MEDS: SODIUM FERR GLUC 62.5MG/5ML 125 MG in SODIUM CHL 0.9% 100 ML IV ONE (14:20)
== END | disposition home or self-care (01) ==
LOC: CHF HDHVI 11:51
PROVIDERS: ATTEND Internal Medicine Cardiovascular Disease
DX: D50.9 Iron deficiency anemia, unspecified (principal); E29.1 Testicular hypofunction; I13.0 Hypertensive heart and chronic kidney disease with heart failure and stage 1 through stage 4 chronic kidney disease, or unspecified chronic kidney disease; N18.31 Chronic kidney disease, stage 3a; I50.23 Acute on chronic systolic (congestive) heart failure; K21.9 Gastro-esophageal reflux disease without esophagitis; I48.91 Unspecified atrial fibrillation; Z85.51 Personal history of malignant neoplasm of bladder
CPT/HCPCS: 96365; 96372; G0463; J1071; J2916; J3420

== ENCOUNTER → 2024-05-23 | Outpatient (CLI) | payer MEDICARE, BC ==
[2024-05-23 11:05] VITALS: BP 126/71; PULSE 77; RESP 16; O2SAT 98
[2024-05-23] MEDS: SODIUM FERRIC GLUC CPLEX 62.5MG/5ML VIAL IV ONE (11:27)
[2024-05-23] MEDS: SODIUM FERR GLUC 62.5MG/5ML 110 ML IV ONE (11:32)
[2024-05-23 12:36] VITALS: BP 99/53; PULSE 73; RESP 16; O2SAT 98
== END | disposition home or self-care (01) ==
LOC: CHF HDHVI 11:03
PROVIDERS: ATTEND Internal Medicine Cardiovascular Disease
DX: D50.9 Iron deficiency anemia, unspecified (principal); I13.0 Hypertensive heart and chronic kidney disease with heart failure and stage 1 through stage 4 chronic kidney disease, or unspecified chronic kidney disease; N18.31 Chronic kidney disease, stage 3a; I50.23 Acute on chronic systolic (congestive) heart failure; K21.9 Gastro-esophageal reflux disease without esophagitis; I48.91 Unspecified atrial fibrillation; E78.5 Hyperlipidemia, unspecified; Z85.51 Personal history of malignant neoplasm of bladder
CPT/HCPCS: 96365; G0463; J2916

== ENCOUNTER → 2024-05-26 | Outpatient (CLI) | payer MEDICARE, BC ==
[~2024-05-26] VITALS: Ht 30.5 cm; Wt 0.5 kg
[2024-05-26 10:35] VITALS: BP 120/68; PULSE 75; RESP 20; O2SAT 99
[2024-05-26] MEDS: SODIUM FERRIC GLUC CPLEX 62.5MG/5ML VIAL IV ONE (10:42)
[2024-05-26 11:48] VITALS: BP 105/57; PULSE 75; RESP 18; O2SAT 99
== END | disposition home or self-care (01) ==
LOC: CHF HDHVI 10:22
PROVIDERS: ATTEND Internal Medicine Cardiovascular Disease
DX: D64.9 Anemia, unspecified (principal); I13.0 Hypertensive heart and chronic kidney disease with heart failure and stage 1 through stage 4 chronic kidney disease, or unspecified chronic kidney disease; N18.31 Chronic kidney disease, stage 3a; I50.23 Acute on chronic systolic (congestive) heart failure; K21.9 Gastro-esophageal reflux disease without esophagitis; E78.5 Hyperlipidemia, unspecified; I48.91 Unspecified atrial fibrillation; Z85.51 Personal history of malignant neoplasm of bladder
CPT/HCPCS: 96365; G0463

== ENCOUNTER → 2024-06-10 | Outpatient (CLI) | payer MEDICARE, BC ==
[2024-06-10 13:20] VITALS: BP 105/60; PULSE 74; RESP 18; O2SAT 96
[2024-06-10] MEDS: SODIUM FERRIC GLUC CPLEX 62.5MG/5ML VIAL IV ONE (13:30)
[2024-06-10] MEDS: SODIUM FERR GLUC 62.5MG/5ML 110 ML IV ONE (14:15)
[2024-06-10 14:30] VITALS: BP 107/60; PULSE 88; RESP 18; O2SAT 96
== END | disposition home or self-care (01) ==
LOC: CHF HDHVI 13:10
PROVIDERS: ATTEND Internal Medicine Cardiovascular Disease
DX: D64.9 Anemia, unspecified (principal); I48.91 Unspecified atrial fibrillation; C67.9 Malignant neoplasm of bladder, unspecified; I13.0 Hypertensive heart and chronic kidney disease with heart failure and stage 1 through stage 4 chronic kidney disease, or unspecified chronic kidney disease; N18.9 Chronic kidney disease, unspecified; I50.9 Heart failure, unspecified; E78.5 Hyperlipidemia, unspecified
CPT/HCPCS: 96365; G0463; J2916

== ENCOUNTER → 2024-06-12 | Outpatient (CLI) | payer MEDICARE, BC ==
[~2024-06-12] MED LIST changes: -PATIENTS OWN MEDICATION (FERRLECIT 125 MG) IV ONE
[2024-06-12 13:21] VITALS: BP 112/69; PULSE 76; RESP 16; O2SAT 96
[2024-06-12] MEDS: SODIUM FERRIC GLUC CPLEX 62.5MG/5ML VIAL IV ONE ×2 (13:23→15:01)
[2024-06-12 14:33] VITALS: BP 103/65; PULSE 73; RESP 16; O2SAT 96
== END | disposition home or self-care (01) ==
LOC: CHF HDHVI 13:14
PROVIDERS: ATTEND Internal Medicine Cardiovascular Disease
DX: D50.9 Iron deficiency anemia, unspecified (principal); K21.9 Gastro-esophageal reflux disease without esophagitis; I13.0 Hypertensive heart and chronic kidney disease with heart failure and stage 1 through stage 4 chronic kidney disease, or unspecified chronic kidney disease; N18.9 Chronic kidney disease, unspecified; I50.9 Heart failure, unspecified; I48.91 Unspecified atrial fibrillation; E78.5 Hyperlipidemia, unspecified; Z85.51 Personal history of malignant neoplasm of bladder
CPT/HCPCS: 96365; G0463; J2916

== ENCOUNTER 2024-07-13 07:08 | Inpatient (IN) | payer MEDICARE, BC ==
[~2024-07-13] VITALS: Ht 180.3 cm; Wt 88.7 kg
[~2024-07-13 07:08] MED LIST changes: +METO25TA93 PO; +NIAC1TAB30 PO
[2024-07-13 07:39] LABS: Basophils # (auto) 0 10 ^3/uL (0-0.2); Basophils % (auto) 0.3 % (0.0-2.0); Eosinophils # (auto) 0 10 ^3/uL (0-0.8); Eosinophils % (auto) 0.1 % (0.0-7.0); Hematocrit 33.9 % (41.0-53.0); Hemoglobin 11.3 g/dL (13.5-17.5); Lymphocytes # (auto) 0.6 10 ^3/uL (0.4-5.4); Lymphocytes % (auto) 7.1 % (10.0-50.0); Mean Corpuscular Hemoglobin 28.9 pg (28.0-32.0); Mean Corpuscular Hgb Conc. 33.3 g/dL (32.0-36.0); Mean Corpuscular Volume 86.9 fL (80.0-100.0); Monocytes # (auto) 0.7 10 ^3/uL (0-1.3); Monocytes % (auto) 7.9 % (0.0-12.0); Neutrophils # (auto) 7.6 10 ^3/uL (1.6-8.6); Neutrophils % (auto) 84.6 % (37.0-80.0); Platelet Count (auto) 178 10^3/uL (140-450); Red Blood Cells 3.91 10^6/uL (4.5-5.90); Red Cell Distribution Width 23.2 % (11.8-14.3); White Blood Cell 8.9 10^3/uL (4.4-10.8)
[2024-07-13 07:40] LABS: Chloride 101 mmol/L (98-107); Potassium 4.4 mmol/L (3.5-5.1); Sodium 136 mmol/L (136-145)
[2024-07-13 07:41] LABS: Anion Gap 8 (5-15); Calcium 8.9 mg/dL (8.7-10.4); Carbon Dioxide 27 mmol/L (20-31)
[2024-07-13 07:46] LABS: BUN/Creatinine Ratio 17.8 (10.0-20.0); Blood Urea Nitrogen 42 mg/dL (9-23); Glucose 107 mg/dL (74-106)
[2024-07-13 08:00] VITALS: PULSE 90; RESP 17; O2SAT 96
[2024-07-13] MEDS: SODIUM CHLORIDE 0.9% 500 ML IV ONE (08:03)
[2024-07-13] MEDS: SODIUM CHLORIDE 0.9% 1,000 ML IV SCH (14:02)
[2024-07-13 19:00] VITALS: PULSE 94; RESP 24; O2SAT 95
[2024-07-13 21:30] VITALS: BP 111/63; PULSE 75; RESP 18; TEMP 98.3; O2SAT 91
[2024-07-13] MEDS: APIXABAN 2.5 MG TAB PO SCH (23:04)
[2024-07-13] MEDS: AMIODARONE HCL 200 MG TAB PO SCH (23:04)
[2024-07-13] MEDS: METOPROLOL SUCCINATE XL 50 MG TAB PO SCH (23:06)
[2024-07-13 23:16] VITALS: PULSE 95; RESP 18; O2SAT 99
[2024-07-14] VITALS (8 sets, daily range): BP systolic 93–151; BP diastolic 50–69; PULSE 78–89; RESP 17–18; TEMP 97.7–98.9; O2SAT 90–98
[2024-07-14 06:38] LABS: Chloride 106 mmol/L (98-107); Sodium 140 mmol/L (136-145)
[2024-07-14 06:39] LABS: Anion Gap 6 (5-15); Calcium 8.8 mg/dL (8.7-10.4); Carbon Dioxide 28 mmol/L (20-31)
[2024-07-14 06:40] LABS: Basophils # (auto) 0 10 ^3/uL (0-0.2); Basophils % (auto) 0.2 % (0.0-2.0); Eosinophils # (auto) 0 10 ^3/uL (0-0.8); Eosinophils % (auto) 0.2 % (0.0-7.0); Hematocrit 30.7 % (41.0-53.0); Hemoglobin 10.1 g/dL (13.5-17.5); Lymphocytes # (auto) 0.6 10 ^3/uL (0.4-5.4); Lymphocytes % (auto) 6.6 % (10.0-50.0); Mean Corpuscular Hemoglobin 29.2 pg (28.0-32.0); Mean Corpuscular Volume 88.4 fL (80.0-100.0); Monocytes # (auto) 0.7 10 ^3/uL (0-1.3); Nucleated Red Blood Cells % 0.1 %; Platelet Count (auto) 148 10^3/uL (140-450); Red Blood Cells 3.47 10^6/uL (4.5-5.90); Red Cell Distribution Width 22.9 % (11.8-14.3); White Blood Cell 8.3 10^3/uL (4.4-10.8)
[2024-07-14 06:44] LABS: BUN/Creatinine Ratio 17.3 (10.0-20.0); Blood Urea Nitrogen 37 mg/dL (9-23); Glucose 90 mg/dL (74-106)
[2024-07-14] MEDS ORDERED: BUMETANIDE 1 MG TAB PO SCH (10:00)
[2024-07-14] MEDS ORDERED: ENOXAPARIN SOD 40 MG/0.4 ML SYRINGE SC SCH (10:00)
[2024-07-14] MEDS: AMIODARONE HCL 200 MG TAB PO SCH (11:44)
[2024-07-14] MEDS: FINASTERIDE 5 MG TAB PO SCH (11:45)
[2024-07-14] MEDS: POTASSIUM CHL 20 Meq TABLET PO SCH (11:45)
[2024-07-14 11:58] LABS: Urine Bacteria FEW /hpf (None Seen); Urine Blood 2+ /uL (Negative); Urine Clarity Turbid (Clear); Urine Color Yellow (Yellow); Urine Protein, UAD TRACE (Negative); Urine Urobilinogen 2 mg/dL (Negative); Urine WBC 44 /hpf (0 - 3); Urine pH 5.5 (5.0-9.0)
[2024-07-14] MEDS: TESTOSTERONE CYPIONATE 200 MG/ML 1ML VIAL IM ONE (16:30)
[2024-07-14] MEDS ORDERED: EPOETIN ALFA-EPBX 10,000 UNIT/1ML VIAL SC ONE (17:00)
[2024-07-14] MEDS: BUMETANIDE 2.5mg/10ml (0.25 mg/ml) INJ IV SCH (18:50)
[2024-07-14] MEDS: DOPamine 1600MCG/ML D5W 250 ML IV SCH (19:01)
[2024-07-14] MEDS: ATORVASTATIN 20 MG TAB PO SCH (21:13)
[2024-07-15] VITALS (8 sets, daily range): BP systolic 116–130; BP diastolic 67–108; PULSE 76–103; RESP 18–20; TEMP 97.3–97.9; O2SAT 90–97
[2024-07-15] MEDS: ONDANSETRON HCL 4 MG/2 ML VIAL IV PRN (05:39)
[2024-07-15] MEDS: PANTOPRAZOLE 40 MG TAB PO SCH (05:50)
[2024-07-15 08:51] LABS: Basophils # (auto) 0 10 ^3/uL (0-0.2); Basophils % (auto) 0.1 % (0.0-2.0); Eosinophils # (auto) 0 10 ^3/uL (0-0.8); Eosinophils % (auto) 0.2 % (0.0-7.0); Hematocrit 37.4 % (41.0-53.0); Hemoglobin 12.2 g/dL (13.5-17.5); Lymphocytes # (auto) 0.6 10 ^3/uL (0.4-5.4); Lymphocytes % (auto) 4.9 % (10.0-50.0); Mean Corpuscular Hemoglobin 28.7 pg (28.0-32.0); Mean Corpuscular Hgb Conc. 32.6 g/dL (32.0-36.0); Mean Corpuscular Volume 88.1 fL (80.0-100.0); Monocytes # (auto) 0.7 10 ^3/uL (0-1.3); Monocytes % (auto) 5.8 % (0.0-12.0); Neutrophils # (auto) 10.7 10 ^3/uL (1.6-8.6); Platelet Count (auto) 246 10^3/uL (140-450); Red Blood Cells 4.25 10^6/uL (4.5-5.90); Red Cell Distribution Width 22.9 % (11.8-14.3)
[2024-07-15 09:10] LABS: Alanine Aminotransferase 154 U/L (7-40); Albumin 3.3 g/dL (3.2-4.8); Alkaline Phosphatase 264 U/L (46-116); Anion Gap 6 (5-15); Aspartate Aminotransferase 182 U/L (13-40); BUN/Creatinine Ratio 16.5 (10.0-20.0); Blood Urea Nitrogen 30 mg/dL (9-23); Calcium 9.1 mg/dL (8.7-10.4); Carbon Dioxide 28 mmol/L (20-31); Chloride 104 mmol/L (98-107); Glucose 115 mg/dL (74-106); Potassium 3.8 mmol/L (3.5-5.1); Sodium 138 mmol/L (136-145)
[2024-07-15 09:11] LABS: Bilirubin, Total 3.8 mg/dL (0.2-1.0); Total Protein 6.8 g/dL (5.7-8.2)
[2024-07-15] MEDS: METOPROLOL SUCCINATE XL 50 MG TAB PO SCH (10:32)
[2024-07-15] MEDS ORDERED: OMEP-448 PO (14:47)
[2024-07-15] MEDS: BUMETANIDE 2.5mg/10ml (0.25 mg/ml) INJ IV ONE (15:23)
[2024-07-15] MEDS: IRON SUCROSE COMPLEX 100 ML IV SCH (15:23)
[2024-07-16] VITALS (8 sets, daily range): BP systolic 89–180; BP diastolic 53–96; PULSE 64–89; RESP 17–21; TEMP 97.6–98.1; O2SAT 94–98
[2024-07-16 06:09] LABS: Basophils # (auto) 0 10 ^3/uL (0-0.2); Basophils % (auto) 0.4 % (0.0-2.0); Eosinophils # (auto) 0 10 ^3/uL (0-0.8); Eosinophils % (auto) 0.4 % (0.0-7.0); Hematocrit 34.5 % (41.0-53.0); Hemoglobin 11.4 g/dL (13.5-17.5); Lymphocytes # (auto) 0.7 10 ^3/uL (0.4-5.4); Lymphocytes % (auto) 6.6 % (10.0-50.0); Mean Corpuscular Hgb Conc. 33.1 g/dL (32.0-36.0); Mean Corpuscular Volume 87.8 fL (80.0-100.0); Monocytes # (auto) 0.9 10 ^3/uL (0-1.3); Monocytes % (auto) 8.4 % (0.0-12.0); Neutrophils # (auto) 8.8 10 ^3/uL (1.6-8.6); Neutrophils % (auto) 84.2 % (37.0-80.0); Nucleated Red Blood Cells % 0.2 %; Platelet Count (auto) 238 10^3/uL (140-450); Red Blood Cells 3.94 10^6/uL (4.5-5.90); Red Cell Distribution Width 22.9 % (11.8-14.3); White Blood Cell 10.5 10^3/uL (4.4-10.8)
[2024-07-16 06:25] LABS: Alanine Aminotransferase 139 U/L (7-40); Alkaline Phosphatase 241 U/L (46-116); Anion Gap 7 (5-15); Aspartate Aminotransferase 171 U/L (13-40); BUN/Creatinine Ratio 14.1 (10.0-20.0); Bilirubin, Total 3.6 mg/dL (0.2-1.0); Blood Urea Nitrogen 26 mg/dL (9-23); Calcium 8.8 mg/dL (8.7-10.4); Carbon Dioxide 29 mmol/L (20-31); Chloride 103 mmol/L (98-107); Glucose 92 mg/dL (74-106); Potassium 3.3 mmol/L (3.5-5.1); Sodium 139 mmol/L (136-145)
[2024-07-16 06:26] LABS: INR 1.45 (0.9-1.15); Partial Thromboplastin Time 37.3 SEC (24.5-34.5); Total Protein 6.3 g/dL (5.7-8.2)
[2024-07-16] MEDS: FUROSEMIDE INJECTION 100 MG in D5W 5% 100 ML IV SCH (11:52)
[2024-07-16] MEDS: POTASSIUM CHL 20MEQ/100ML 100 ML IV SCH (11:53)
[2024-07-17 01:00] VITALS: BP 117/68; PULSE 95; RESP 18; TEMP 97.7; O2SAT 94
[2024-07-17 05:00] VITALS: BP 122/54; PULSE 92; RESP 18; TEMP 97.9; O2SAT 98
[2024-07-17 07:02] LABS: Alanine Aminotransferase 134 U/L (7-40); Alkaline Phosphatase 231 U/L (46-116); Anion Gap 8 (5-15); Aspartate Aminotransferase 171 U/L (13-40); Blood Urea Nitrogen 21 mg/dL (9-23); Calcium 8.7 mg/dL (8.7-10.4); Carbon Dioxide 28 mmol/L (20-31); Chloride 100 mmol/L (98-107); Glucose 92 mg/dL (74-106); Potassium 3.1 mmol/L (3.5-5.1); Sodium 136 mmol/L (136-145)
[2024-07-17 07:03] LABS: Albumin 2.9 g/dL (3.2-4.8); Bilirubin, Total 3.9 mg/dL (0.2-1.0); Total Protein 6.2 g/dL (5.7-8.2)
[2024-07-17 08:00] VITALS: PULSE 112
[2024-07-17 08:17] VITALS: BP 122/58; PULSE 86; RESP 20; TEMP 97.6; O2SAT 91
[2024-07-17] MEDS: POTASSIUM CHLORIDE 80 MEQ, LIDOCAINE 1% (LOCAL ANESTH.) 6 ML in SODIUM CHL 0.9% 500 ML IV ONE (09:45)
[2024-07-17] MEDS: APIXABAN 2.5 MG TAB PO SCH (11:20)
[2024-07-17 12:05] VITALS: BP 98/98; PULSE 58; RESP 18; TEMP 98.3; O2SAT 96
[2024-07-17 19:30] VITALS: BP 105/58; PULSE 75; RESP 18; TEMP 98.6; O2SAT 96
[2024-07-18] VITALS (10 sets, daily range): BP systolic 94–150; BP diastolic 50–67; PULSE 68–95; RESP 16–76; TEMP 97.1–98.6; O2SAT 81–97
[2024-07-18 07:55] LABS: Basophils # (auto) 0 10 ^3/uL (0-0.2); Basophils % (auto) 0.2 % (0.0-2.0); Eosinophils # (auto) 0.1 10 ^3/uL (0-0.8); Eosinophils % (auto) 0.7 % (0.0-7.0); Hematocrit 30.9 % (41.0-53.0); Hemoglobin 10.3 g/dL (13.5-17.5); Lymphocytes # (auto) 0.6 10 ^3/uL (0.4-5.4); Mean Corpuscular Hemoglobin 29.6 pg (28.0-32.0); Mean Corpuscular Hgb Conc. 33.4 g/dL (32.0-36.0); Mean Corpuscular Volume 88.7 fL (80.0-100.0); Monocytes # (auto) 1.2 10 ^3/uL (0-1.3); Monocytes % (auto) 12.9 % (0.0-12.0); Neutrophils # (auto) 7.4 10 ^3/uL (1.6-8.6); Neutrophils % (auto) 80.2 % (37.0-80.0); Nucleated Red Blood Cells % 0.1 %; Platelet Count (auto) 254 10^3/uL (140-450); Red Blood Cells 3.48 10^6/uL (4.5-5.90); White Blood Cell 9.2 10^3/uL (4.4-10.8)
[2024-07-18 08:10] LABS: INR 1.54 (0.9-1.15); Partial Thromboplastin Time 39.5 SEC (24.5-34.5); Prothrombin Time 15.8 sec (9.3-11.8)
[2024-07-18 08:13] LABS: Alanine Aminotransferase 119 U/L (7-40); Albumin 2.6 g/dL (3.2-4.8); Alkaline Phosphatase 202 U/L (46-116); Anion Gap 7 (5-15); Aspartate Aminotransferase 164 U/L (13-40); BUN/Creatinine Ratio 11.2 (10.0-20.0); Bilirubin, Total 3.5 mg/dL (0.2-1.0); Blood Urea Nitrogen 23 mg/dL (9-23); Calcium 8.5 mg/dL (8.7-10.4); Carbon Dioxide 30 mmol/L (20-31); Chloride 99 mmol/L (98-107); Glucose 89 mg/dL (74-106); Potassium 3.2 mmol/L (3.5-5.1); Sodium 136 mmol/L (136-145); Total Protein 5.6 g/dL (5.7-8.2)
[2024-07-18] MEDS: POTASSIUM CHL 20MEQ/100ML 100 ML IV SCH (09:05)
[2024-07-18] MEDS: POTASSIUM EFFERVESENT TAB 25 MEQ PO SCH (12:01)
[2024-07-18] MEDS: BUMETANIDE 1 MG TAB PO SCH (19:48)
[2024-07-19] VITALS (8 sets, daily range): BP systolic 89–131; BP diastolic 63–93; PULSE 57–91; RESP 16–20; TEMP 97.6–98.8; O2SAT 83–98
[2024-07-19 05:54] LABS: Anion Gap 4 (5-15); Carbon Dioxide 30 mmol/L (20-31); Chloride 97 mmol/L (98-107); Potassium 4.4 mmol/L (3.5-5.1)
[2024-07-19 06:00] LABS: % Iron Saturation 42.1 % (20-55); BUN/Creatinine Ratio 11.3 (10.0-20.0); Blood Urea Nitrogen 25 mg/dL (9-23); Glucose 92 mg/dL (74-106)
[2024-07-19 06:01] LABS: Magnesium 1.7 mg/dL (1.6-2.6)
[2024-07-19 06:06] LABS: Sodium 131 mmol/L (136-145)
[2024-07-19] MEDS: MAGNESIUM SULFATE 1GM/100ML 100 ML IV SCH (11:03)
[2024-07-19] MEDS: MAGNESIUM SULFATE 1GM/100ML 100 ML IV ONE (14:26)
[2024-07-20] VITALS (8 sets, daily range): BP systolic 87–107; BP diastolic 45–76; PULSE 69–87; RESP 7–20; TEMP 97.5–98.2; O2SAT 94–98
[2024-07-20 07:34] LABS: Alanine Aminotransferase 121 U/L (7-40); Albumin 2.7 g/dL (3.2-4.8); Alkaline Phosphatase 223 U/L (46-116); Anion Gap 6 (5-15); Aspartate Aminotransferase 173 U/L (13-40); BUN/Creatinine Ratio 11.7 (10.0-20.0); Blood Urea Nitrogen 24 mg/dL (9-23); Calcium 8.9 mg/dL (8.7-10.4); Carbon Dioxide 29 mmol/L (20-31); Chloride 96 mmol/L (98-107); Glucose 72 mg/dL (74-106); Potassium 4.1 mmol/L (3.5-5.1); Sodium 131 mmol/L (136-145)
[2024-07-20 07:35] LABS: Bilirubin, Total 4.1 mg/dL (0.2-1.0); Total Protein 5.7 g/dL (5.7-8.2)
[2024-07-20] MEDS: POTASSIUM CHL 10 Meq TABLET PO SCH (10:00)
[2024-07-20] MEDS: metOLazone 5 MG TAB PO SCH (10:00)
[2024-07-21] VITALS (8 sets, daily range): BP systolic 99–115; BP diastolic 49–68; PULSE 73–105; RESP 15–22; TEMP 97.5–98.1; O2SAT 93–100
[2024-07-21 09:07] LABS: Hepatitis B Core Total AB Negative (Negative)
[2024-07-21 09:24] LABS: Hepatitis A Total Antibody Negative (Negative); Hepatitis B Surface Antibody Negative (Negative); Hepatitis B Surface Antigen Negative (Negative); Hepatitis C Antibody Negative (Negative)
[2024-07-21 16:01] LABS: Bilirubin, Direct 3.2 mg/dL (<0.3); Bilirubin, Total 4.9 mg/dL (0.2-1.0); Total Protein 6.5 g/dL (5.7-8.2)
[2024-07-22] VITALS (10 sets, daily range): BP systolic 100–114; BP diastolic 42–59; PULSE 67–100; RESP 16–19; TEMP 97.7–98.3; O2SAT 95–98
[2024-07-22 07:33] LABS: Basophils # (auto) 0 10 ^3/uL (0-0.2); Basophils % (auto) 0.4 % (0.0-2.0); Eosinophils # (auto) 0.1 10 ^3/uL (0-0.8); Eosinophils % (auto) 0.7 % (0.0-7.0); Hematocrit 30.9 % (41.0-53.0); Hemoglobin 10.6 g/dL (13.5-17.5); Lymphocytes # (auto) 0.8 10 ^3/uL (0.4-5.4); Lymphocytes % (auto) 6.8 % (10.0-50.0); Mean Corpuscular Hemoglobin 30.6 pg (28.0-32.0); Mean Corpuscular Hgb Conc. 34.4 g/dL (32.0-36.0); Monocytes # (auto) 1.7 10 ^3/uL (0-1.3); Monocytes % (auto) 15.6 % (0.0-12.0); Neutrophils # (auto) 8.5 10 ^3/uL (1.6-8.6); Neutrophils % (auto) 76.5 % (37.0-80.0); Platelet Count (auto) 280 10^3/uL (140-450); Red Blood Cells 3.48 10^6/uL (4.5-5.90); White Blood Cell 11.1 10^3/uL (4.4-10.8)
[2024-07-22 07:50] LABS: Alanine Aminotransferase 110 U/L (7-40); Albumin 2.5 g/dL (3.2-4.8); Alkaline Phosphatase 221 U/L (46-116); Anion Gap 7 (5-15); Aspartate Aminotransferase 152 U/L (13-40); BUN/Creatinine Ratio 12.7 (10.0-20.0); Blood Urea Nitrogen 31 mg/dL (9-23); Calcium 8.6 mg/dL (8.7-10.4); Carbon Dioxide 29 mmol/L (20-31); Chloride 95 mmol/L (98-107); Glucose 72 mg/dL (74-106); Potassium 3.1 mmol/L (3.5-5.1); Sodium 131 mmol/L (136-145)
[2024-07-22 07:51] LABS: Bilirubin, Total 4.4 mg/dL (0.2-1.0); Total Protein 5.6 g/dL (5.7-8.2)
[2024-07-22 08:28] LABS: Platelet Estimate Adequate; Tear Drop Cells FEW
[2024-07-22 08:29] LABS: Anisocytosis Moderate
[2024-07-22] MEDS: POTASSIUM CHL 20 Meq TABLET PO ONE (10:06)
[2024-07-22] MEDS: POTASSIUM CHL 20MEQ/100ML 100 ML IV SCH (14:20)
[2024-07-22] MEDS: AMIODARONE HCL 200 MG TAB PO SCH (15:19)
[2024-07-22] MEDS: SPIRONOLACTONE 25 MG TAB PO SCH (18:48)
[2024-07-23] VITALS (8 sets, daily range): BP systolic 86–119; BP diastolic 49–65; PULSE 66–93; RESP 14–19; TEMP 97.4–98.6; O2SAT 92–99
[2024-07-23 07:10] LABS: Alanine Aminotransferase 105 U/L (7-40); Albumin 2.5 g/dL (3.2-4.8); Alkaline Phosphatase 231 U/L (46-116); Anion Gap 7 (5-15); Aspartate Aminotransferase 152 U/L (13-40); BUN/Creatinine Ratio 12.6 (10.0-20.0); Bilirubin, Total 4.5 mg/dL (0.2-1.0); Blood Urea Nitrogen 36 mg/dL (9-23); Calcium 8.5 mg/dL (8.7-10.4); Carbon Dioxide 30 mmol/L (20-31); Chloride 95 mmol/L (98-107); Glucose 73 mg/dL (74-106); Potassium 3.1 mmol/L (3.5-5.1); Sodium 132 mmol/L (136-145)
[2024-07-23 07:11] LABS: Total Protein 5.5 g/dL (5.7-8.2)
[2024-07-23] MEDS: POTASSIUM CHL 20 Meq TABLET PO ONE (10:52)
[2024-07-23 14:07] LABS: Mitochondrial (M2) Antibody <20.0 Units (0.0-20.0)
[2024-07-23] MEDS: POTASSIUM CHL 20MEQ/100ML 100 ML IV SCH (14:22)
[2024-07-23] MEDS: TESTOSTERONE CYPIONATE 200 MG/ML 1ML VIAL IM ONE (18:13)
[2024-07-24] VITALS (8 sets, daily range): BP systolic 74–111; BP diastolic 40–59; PULSE 63–103; RESP 12–18; TEMP 97.7–98.5; O2SAT 91–98
[2024-07-24] MEDS: POTASSIUM CHL 20MEQ/100ML 100 ML IV ONE ×2 (00:28→02:33)
[2024-07-24 06:54] LABS: Alanine Aminotransferase 124 U/L (7-40); Albumin 2.9 g/dL (3.2-4.8); Alkaline Phosphatase 252 U/L (46-116); Anion Gap 8 (5-15); Aspartate Aminotransferase 178 U/L (13-40); BUN/Creatinine Ratio 12.8 (10.0-20.0); Bilirubin, Total 6.4 mg/dL (0.2-1.0); Blood Urea Nitrogen 40 mg/dL (9-23); Calcium 8.8 mg/dL (8.7-10.4); Carbon Dioxide 29 mmol/L (20-31); Chloride 93 mmol/L (98-107); Glucose 73 mg/dL (74-106); Sodium 130 mmol/L (136-145)
[2024-07-24 06:55] LABS: Total Protein 6.4 g/dL (5.7-8.2)
[2024-07-24 07:00] LABS: Basophils # (auto) 0.1 10 ^3/uL (0-0.2); Basophils % (auto) 0.7 % (0.0-2.0); Eosinophils # (auto) 0 10 ^3/uL (0-0.8); Eosinophils % (auto) 0.2 % (0.0-7.0); Hematocrit 35.9 % (41.0-53.0); Hemoglobin 12.3 g/dL (13.5-17.5); Lymphocytes # (auto) 0.5 10 ^3/uL (0.4-5.4); Lymphocytes % (auto) 3.9 % (10.0-50.0); Mean Corpuscular Hgb Conc. 34.2 g/dL (32.0-36.0); Mean Corpuscular Volume 90.4 fL (80.0-100.0); Monocytes # (auto) 1.5 10 ^3/uL (0-1.3); Monocytes % (auto) 11.1 % (0.0-12.0); Neutrophils # (auto) 11.2 10 ^3/uL (1.6-8.6); Neutrophils % (auto) 84.1 % (37.0-80.0); Platelet Count (auto) 298 10^3/uL (140-450); Red Blood Cells 3.96 10^6/uL (4.5-5.90); Red Cell Distribution Width 25.4 % (11.8-14.3); White Blood Cell 13.3 10^3/uL (4.4-10.8)
[2024-07-24 08:42] LABS: Anisocytosis Moderate; Platelet Estimate Adequate
[2024-07-25] VITALS (7 sets, daily range): BP systolic 95–128; BP diastolic 49–87; PULSE 70–110; RESP 15–20; TEMP 97.1–98.5; O2SAT 94–97
[2024-07-25 11:22] LABS: Basophils # (auto) 0 10 ^3/uL (0-0.2); Basophils % (auto) 0.1 % (0.0-2.0); Eosinophils # (auto) 0 10 ^3/uL (0-0.8); Eosinophils % (auto) 0.1 % (0.0-7.0); Hematocrit 32.2 % (41.0-53.0); Hemoglobin 10.6 g/dL (13.5-17.5); Lymphocytes # (auto) 0.4 10 ^3/uL (0.4-5.4); Mean Corpuscular Hemoglobin 30.2 pg (28.0-32.0); Mean Corpuscular Hgb Conc. 32.8 g/dL (32.0-36.0); Mean Corpuscular Volume 92.1 fL (80.0-100.0); Monocytes # (auto) 1.6 10 ^3/uL (0-1.3); Monocytes % (auto) 10.6 % (0.0-12.0); Neutrophils # (auto) 12.8 10 ^3/uL (1.6-8.6); Neutrophils % (auto) 86.2 % (37.0-80.0); Nucleated Red Blood Cells % 0.1 %; Platelet Count (auto) 203 10^3/uL (140-450); Red Blood Cells 3.49 10^6/uL (4.5-5.90); Red Cell Distribution Width 26.4 % (11.8-14.3); White Blood Cell 14.9 10^3/uL (4.4-10.8)
[2024-07-25 14:05] LABS: Chloride 92 mmol/L (98-107); Potassium 4.1 mmol/L (3.5-5.1)
[2024-07-25 14:09] LABS: Calcium 8.7 mg/dL (8.7-10.4); Carbon Dioxide 26 mmol/L (20-31)
[2024-07-25 14:14] LABS: BUN/Creatinine Ratio 11.8 (10.0-20.0); Blood Urea Nitrogen 39 mg/dL (9-23); Glucose 93 mg/dL (74-106)
[2024-07-25 14:15] LABS: Alkaline Phosphatase 250 U/L (46-116)
[2024-07-25 14:16] LABS: Alanine Aminotransferase 157 U/L (7-40); Albumin 2.8 g/dL (3.2-4.8); Aspartate Aminotransferase 353 U/L (13-40)
[2024-07-25 14:17] LABS: Total Protein 6.5 g/dL (5.7-8.2)
[2024-07-25 15:15] LABS: Anion Gap 11 (5-15); Sodium 129 mmol/L (136-145)
[2024-07-26] VITALS (10 sets, daily range): BP systolic 96–113; BP diastolic 41–64; PULSE 72–96; RESP 16–20; TEMP 97.3–98.1; O2SAT 91–96
[2024-07-26] MEDS ORDERED: IPRATROPIUM BROM 0.5 MG/2.5ML INH SOL NEB PRN (18:30)
[2024-07-26] MEDS ORDERED: ALBUTEROL SULF 2.5 MG/0.5ML(0.5%) NEB SOLN NEB PRN (18:30)
[2024-07-27] VITALS (12 sets, daily range): BP systolic 82–130; BP diastolic 43–60; PULSE 81–106; RESP 17–18; TEMP 97.4–98.3; O2SAT 90–96
[2024-07-27 07:50] LABS: Basophils # (auto) 0 10 ^3/uL (0-0.2); Basophils % (auto) 0.2 % (0.0-2.0); Eosinophils # (auto) 0 10 ^3/uL (0-0.8); Hematocrit 32.9 % (41.0-53.0); Hemoglobin 10.9 g/dL (13.5-17.5); Lymphocytes # (auto) 0.5 10 ^3/uL (0.4-5.4); Lymphocytes % (auto) 2.5 % (10.0-50.0); Mean Corpuscular Hgb Conc. 33.2 g/dL (32.0-36.0); Mean Corpuscular Volume 90.5 fL (80.0-100.0); Monocytes # (auto) 1.4 10 ^3/uL (0-1.3); Monocytes % (auto) 6.8 % (0.0-12.0); Neutrophils # (auto) 18.9 10 ^3/uL (1.6-8.6); Neutrophils % (auto) 90.5 % (37.0-80.0); Nucleated Red Blood Cells % 0.1 %; Platelet Count (auto) 179 10^3/uL (140-450); Red Blood Cells 3.63 10^6/uL (4.5-5.90); Red Cell Distribution Width 25.2 % (11.8-14.3); White Blood Cell 20.9 10^3/uL (4.4-10.8)
[2024-07-27 07:58] LABS: Alanine Aminotransferase 143 U/L (7-40); Albumin 2.4 g/dL (3.2-4.8); Alkaline Phosphatase 217 U/L (46-116); Anion Gap 11 (5-15); Aspartate Aminotransferase 277 U/L (13-40); BUN/Creatinine Ratio 16.3 (10.0-20.0); Bilirubin, Total 6.1 mg/dL (0.2-1.0); Calcium 8.5 mg/dL (8.7-10.4); Carbon Dioxide 27 mmol/L (20-31); Chloride 92 mmol/L (98-107); Glucose 66 mg/dL (74-106); Potassium 3.3 mmol/L (3.5-5.1); Sodium 130 mmol/L (136-145); Total Protein 5.5 g/dL (5.7-8.2)
[2024-07-27] MEDS: POTASSIUM CHL 20MEQ/100ML 100 ML IV ONE (08:03)
[2024-07-27 08:13] LABS: Blood Urea Nitrogen 57 mg/dL (9-23)
[2024-07-28] VITALS (12 sets, daily range): BP systolic 99–110; BP diastolic 51–75; PULSE 70–96; RESP 14–18; TEMP 97.8–98.3; O2SAT 92–98
[2024-07-28] MEDS: POTASSIUM CHL 20 Meq TABLET PO ONE (11:29)
[2024-07-28] MEDS: cefTRIAXone 1GM/50ML D5W 50 ML IV ONE (12:20)
[2024-07-28] MEDS ORDERED: LACTULOSE 20Gm/30ML SOLN PO PRN (13:00)
[2024-07-28] MEDS: POTASSIUM CHL 10 Meq TABLET PO ONE (13:29)
[2024-07-28] MEDS: MORPHINE SULFATE INJ 2 MG/ml SYRG IV PRN (13:33)
[2024-07-28 13:38] LABS: Urine Bacteria None Seen /hpf (None Seen)
[2024-07-28] MEDS: DOCUSATE SOD 100 MG CAP PO PRN (13:40)
[2024-07-28] MEDS: metroNIDAZOLE 500MG/100ML 100 ML IV SCH (13:50)
[2024-07-28 14:04] LABS: Urine Blood Negative /uL (Negative); Urine Clarity Clear (Clear); Urine Color Yellow (Yellow); Urine Hyaline Cast MOD /lpf (0 - 2); Urine Protein, UAD Negative (Negative); Urine Specific Gravity 1.009 (1.001-1.035); Urine Urobilinogen Normal (Negative); Urine WBC 2 /hpf (0 - 3)
[2024-07-29] VITALS (12 sets, daily range): BP systolic 92–104; BP diastolic 52–63; PULSE 82–110; RESP 18–20; TEMP 97.7–98.1; O2SAT 18–96
[2024-07-29 07:34] LABS: Basophils # (auto) 0.1 10 ^3/uL (0-0.2); Basophils % (auto) 0.4 % (0.0-2.0); Eosinophils # (auto) 0 10 ^3/uL (0-0.8); Hematocrit 34.8 % (41.0-53.0); Hemoglobin 11.7 g/dL (13.5-17.5); Lymphocytes # (auto) 0.5 10 ^3/uL (0.4-5.4); Lymphocytes % (auto) 2.4 % (10.0-50.0); Mean Corpuscular Hemoglobin 30.4 pg (28.0-32.0); Mean Corpuscular Hgb Conc. 33.5 g/dL (32.0-36.0); Mean Corpuscular Volume 90.7 fL (80.0-100.0); Monocytes # (auto) 1.2 10 ^3/uL (0-1.3); Monocytes % (auto) 5.6 % (0.0-12.0); Neutrophils # (auto) 19.6 10 ^3/uL (1.6-8.6); Neutrophils % (auto) 91.6 % (37.0-80.0); Nucleated Red Blood Cells % 0.1 %; Platelet Count (auto) 163 10^3/uL (140-450); Red Blood Cells 3.84 10^6/uL (4.5-5.90); Red Cell Distribution Width 25.2 % (11.8-14.3); White Blood Cell 21.4 10^3/uL (4.4-10.8)
[2024-07-29 07:51] LABS: Alanine Aminotransferase 142 U/L (7-40); Alkaline Phosphatase 208 U/L (46-116); Anion Gap 10 (5-15); BUN/Creatinine Ratio 18.6 (10.0-20.0); Blood Urea Nitrogen 60 mg/dL (9-23); Calcium 8.6 mg/dL (8.7-10.4); Carbon Dioxide 28 mmol/L (20-31); Chloride 94 mmol/L (98-107); Glucose 63 mg/dL (74-106); Potassium 3.3 mmol/L (3.5-5.1); Sodium 132 mmol/L (136-145)
[2024-07-29 07:52] LABS: Albumin 2.4 g/dL (3.2-4.8); Aspartate Aminotransferase 244 U/L (13-40); Bilirubin, Total 7.9 mg/dL (0.2-1.0); Total Protein 5.7 g/dL (5.7-8.2)
[2024-07-29] MEDS ORDERED: cefTRIAXone 1GM/50ML D5W 50 ML IV SCH (09:00)
[2024-07-29] MEDS: BUMETANIDE 1 MG TAB PO SCH (10:00)
[2024-07-29] MEDS: SPIRONOLACTONE 25 MG TAB PO SCH (10:00)
[2024-07-29] MEDS: POTASSIUM CHL 20 Meq TABLET PO ONE (10:30)
[2024-07-29] MEDS: PIPERACILLIN-TAZOB 3.375GM 100 ML IV ONE (10:48)
[2024-07-29 10:50] LABS: Anisocytosis Moderate; Platelet Estimate Adequate; Tear Drop Cells FEW
[2024-07-29] MEDS: PIPERACILLIN-TAZOB 3.375GM 100 ML IV SCH (21:21)
[2024-07-30] VITALS (8 sets, daily range): BP systolic 100–111; BP diastolic 58–68; PULSE 73–108; RESP 18; TEMP 36.4; O2SAT 91–96
[2024-07-30 06:25] LABS: Basophils # (auto) 0 10 ^3/uL (0-0.2); Basophils % (auto) 0.2 % (0.0-2.0); Eosinophils # (auto) 0 10 ^3/uL (0-0.8); Hematocrit 35.4 % (41.0-53.0); Hemoglobin 11.8 g/dL (13.5-17.5); Lymphocytes # (auto) 0.4 10 ^3/uL (0.4-5.4); Lymphocytes % (auto) 1.9 % (10.0-50.0); Mean Corpuscular Hemoglobin 30.3 pg (28.0-32.0); Mean Corpuscular Hgb Conc. 33.3 g/dL (32.0-36.0); Mean Corpuscular Volume 91.2 fL (80.0-100.0); Monocytes # (auto) 1.2 10 ^3/uL (0-1.3); Monocytes % (auto) 6.1 % (0.0-12.0); Neutrophils # (auto) 18.3 10 ^3/uL (1.6-8.6); Neutrophils % (auto) 91.8 % (37.0-80.0); Platelet Count (auto) 147 10^3/uL (140-450); Red Blood Cells 3.89 10^6/uL (4.5-5.90); Red Cell Distribution Width 25.7 % (11.8-14.3); White Blood Cell 19.9 10^3/uL (4.4-10.8)
[2024-07-30 06:42] LABS: Alanine Aminotransferase 139 U/L (7-40); Albumin 2.4 g/dL (3.2-4.8); Alkaline Phosphatase 206 U/L (46-116); Anion Gap 11 (5-15); Aspartate Aminotransferase 277 U/L (13-40); Blood Urea Nitrogen 62 mg/dL (9-23); Calcium 8.9 mg/dL (8.7-10.4); Carbon Dioxide 29 mmol/L (20-31); Chloride 93 mmol/L (98-107); Glucose 68 mg/dL (74-106); Potassium 3.3 mmol/L (3.5-5.1); Sodium 133 mmol/L (136-145)
[2024-07-30 06:43] LABS: Total Protein 5.8 g/dL (5.7-8.2)
[2024-07-30 06:49] LABS: BUN/Creatinine Ratio 18.8 (10.0-20.0)
[2024-07-30 09:04] LABS: Anisocytosis Moderate; Ovalocytes FEW; Platelet Estimate Adequate; Tear Drop Cells FEW
== END 2024-07-30 18:50 | disposition hospice, home (50) | DRG 871 ==
LOC: ER 07:08 → EDBD 07:08 → EDUNIT# 07:08 → OVERFLOW 13:26 → TELE-CENTR 13:26 → CENTRAL 21:20 → TELE-CENTR 07-14 10:20
PROVIDERS: ADMIT Registered Nurse; ATTEND Internal Medicine
PROC: 05HF33Z Insertion of Infusion Device into Left Cephalic Vein, Percutaneous Approach (ICD-10-PCS; principal; 2024-07-16)
PROC: B54NZZA Ultrasonography of Left Upper Extremity Veins, Guidance (ICD-10-PCS; 2024-07-16)
DX: A41.9 Sepsis, unspecified organism (principal); I50.33 Acute on chronic diastolic (congestive) heart failure; N17.0 Acute kidney failure with tubular necrosis; K80.00 Calculus of gallbladder with acute cholecystitis without obstruction; I13.0 Hypertensive heart and chronic kidney disease with heart failure and stage 1 through stage 4 chronic kidney disease, or unspecified chronic kidney disease; I48.20 Chronic atrial fibrillation, unspecified; D68.69 Other thrombophilia; C78.89 Secondary malignant neoplasm of other digestive organs; N18.31 Chronic kidney disease, stage 3a; E87.6 Hypokalemia; K21.9 Gastro-esophageal reflux disease without esophagitis; I49.5 Sick sinus syndrome; D50.9 Iron deficiency anemia, unspecified; E78.5 Hyperlipidemia, unspecified; K74.60 Unspecified cirrhosis of liver; N40.0 Benign prostatic hyperplasia without lower urinary tract symptoms; Z79.2 Long term (current) use of antibiotics; Z79.899 Other long term (current) drug therapy; K72.90 Hepatic failure, unspecified without coma; Z85.51 Personal history of malignant neoplasm of bladder; Z95.0 Presence of cardiac pacemaker; Z51.5 Encounter for palliative care; Z92.21 Personal history of antineoplastic chemotherapy
CPT/HCPCS: 36415; 71045; 71250; 72192; 74176; 74181; 76705; 80048; 80053; 80076; 81001; 82105; 82140; 82390; 82728; 83540; 83550; 83735; 85025; 85610; 85730; 86301; 86704; 86706; 86708; 86803; 86850; 86900; 86901; 87340; 93005; 96360; 96361; 97110; 97116; 97163; 97530; 99291; G0378; J1071; J1756; J2003; J2405; J2543; J3480; J3490; J7060